=== PATIENT | female | born 2000 ===

== ENCOUNTER 2020-07-12 11:37 | Outpatient (REF) | payer OTHER, SELFPAY ==
[2020-07-12 13:30] LABS: MANUAL DIFF FLAG NO
[2020-07-12 13:35] LABS: Basophils Absolute Auto 0.1 X10*3/uL (0.0-0.2); Basophils Percent Auto 0.7 % (0-2); Eosinophils Absolute Auto 0.3 X10*3/uL (0.0-0.4); Eosinophils Percent Auto 4.8 % (0-4); Hematocrit 45.9 % (37-47); Hemoglobin 15.3 g/dl (12.0-16.0); Imm Gran Abs Auto 0.01 X10*3/uL (0.00-0.03); Imm Gran Pct Auto 0.1 % (0.0-0.4); Lymphocytes Percent Auto 28.9 % (20-40); Mean Corpuscular HGB Conc 33.3 g/dl (31.0-35.0); Mean Corpuscular Hemoglobin 29.7 pg (27.0-33.0); Mean Corpuscular Volume 89.1 fL (80-98); Mean Platelet Volume 10.9 fL (9.4-12.3); Monocytes Absolute Auto 0.6 X10*3/uL (0.1-1.2); Monocytes Percent Auto 8.1 % (2-11); Neutrophils Absolute Auto 3.9 X10*3/uL (2.0-8.3); Neutrophils Percent Auto 57.4 % (45-73); Platelet Count 278 X10*3/uL (160-400); Red Blood Count 5.15 X10*6/uL (4.20-5.50); Red Cell Distribution Width 12.2 % (11.0-16.0); White Blood Count 6.8 X10*3/uL (4.8-10.8)
[2020-07-12 13:46] LABS: Glucose Urine UA NEG (NEG); Leukocyte Esterase Urine NEG (NEG); Nitrite Urine NEG (NEG); PH 6.5 (5.0-8.0); Specific Gravity - Urine 1.025 (1.005-1.025); Urine Blood NEG (NEG); Urine Ketones NEG (NEG); Urine Protein NEG (NEG-TRACE)
[2020-07-12 13:57] LABS: Appearance Urine CLEAR; Color Urine YELLOW
[2020-07-12 14:27] LABS: Alanine Aminotransferase 8 U/L (0-31); Albumin Level 4.5 g/dL (3.5-5.0); Alkaline Phosphatase 65 U/L (39-117); Anion Gap 10 (12-20); Aspartate Amino Transferase 14 U/L (5-31); Bilirubin Total 0.8 mg/dL (0.0-1.0); Blood Urea Nitrogen 7 mg/dL (9-16); C Reactive Protein 0.02 mg/dL (< or = 0.50); Calcium 9.4 mg/dL (8.4-10.2); Carbon Dioxide 27 mmol/L (22-29); Chloride 105 mmol/L (96-108); Estimated Glomerular Filt Rate > 60; Glucose Random 82 mg/dL (60-115); Potassium 4.2 mmol/l (3.3-5.1); Sodium 138 mmol/L (135-145)
== END 2020-07-12 11:38 | disposition home or self-care (01) ==
LOC: HO.10HDL 11:37
PROVIDERS: PCP Internal Medicine; Visit Provider Internal Medicine
DX: L50.9 Urticaria, unspecified (principal); N20.0 Calculus of kidney; Z86.2 Personal history of diseases of the blood and blood-forming organs and certain disorders involving the immune mechanism
CPT/HCPCS: 36415; 80053; 81003; 85025; 86140

== ENCOUNTER → 2020-08-22 10:29 | Outpatient (BNVA) | payer OTHER, SELFPAY | PROVIDERS: PCP Internal Medicine; Visit Provider Obstetrics & Gynecology | DX: Z76.89 Persons encountering health services in other specified circumstances (principal) ==

== ENCOUNTER 2021-02-24 15:50 | Outpatient (REF) | payer OTHER, SELFPAY ==
--- NOTE | ~2021-02-24 | XR_ITS ---
EXAMINATION: XR KNEE, LEFT CLINICAL INFORMATION: Left knee pain COMPARISON: None TECHNIQUE: Four views of the left knee. FINDINGS: Bones and soft tissues are normal. No fracture or joint effusion. Alignment is anatomic. Joint spaces are well maintained. No abnormal soft tissue calcification. XR/XR knee LT 4V IMPRESSION: Unremarkable left knee.
== END 2021-02-24 15:51 | disposition home or self-care (01) ==
LOC: HO.XRAY 15:50
PROVIDERS: PCP Internal Medicine; Visit Provider Internal Medicine
DX: M25.562 Pain in left knee (principal)
CPT/HCPCS: 73564

== ENCOUNTER 2021-05-19 10:07 | Outpatient (REF) | payer MEDICAID, SELFPAY ==
[2021-05-20 03:54] LABS: CT PCR NOT DETECTED (Not Detect.); NG PCR NOT DETECTED (Not Detect.)
[2021-05-20 09:40] LABS: BV Int Neg Control Negative (Negative); BV Int Pos Control Positive (Positive)
== END 2021-05-19 10:08 | disposition home or self-care (01) ==
LOC: HO.LAB 10:07
PROVIDERS: PCP Internal Medicine; Visit Provider Obstetrics & Gynecology
DX: Z01.411 Encounter for gynecological examination (general) (routine) with abnormal findings (principal); Z11.3 Encounter for screening for infections with a predominantly sexual mode of transmission; B37.3 Candidiasis of vulva and vagina
CPT/HCPCS: 87480; 87491; 87510; 87591; 87660

== ENCOUNTER → 2021-05-21 15:06 | Outpatient (BNVA) | payer MEDICAID, SELFPAY | PROVIDERS: PCP Internal Medicine | DX: Z13.89 Encounter for screening for other disorder (principal); Z20.822 Contact with and (suspected) exposure to COVID-19 | CPT/HCPCS: 36415; 87635; C9803 ==

== ENCOUNTER → 2021-08-14 14:46 | Outpatient (BNVA) | payer OTHER, SELFPAY | PROVIDERS: Visit Provider Advanced Practice Midwife | DX: L72.3 Sebaceous cyst (principal) | CPT/HCPCS: 99212 ==

== ENCOUNTER 2021-12-22 08:23 | Outpatient (REF) | payer OTHER, SELFPAY ==
[2021-12-22 14:41] LABS: CT PCR NOT DETECTED (Not Detect.); NG PCR NOT DETECTED (Not Detect.)
[2021-12-23 14:09] LABS: BV Int Neg Control Negative (Negative); BV Int Pos Control Positive (Positive)
== END 2021-12-22 08:24 | disposition home or self-care (01) ==
LOC: HO.LAB 08:23
PROVIDERS: Visit Provider Advanced Practice Midwife
DX: R10.2 Pelvic and perineal pain (principal); N89.8 Other specified noninflammatory disorders of vagina; R68.82 Decreased libido; Z20.2 Contact with and (suspected) exposure to infections with a predominantly sexual mode of transmission
CPT/HCPCS: 87480; 87491; 87510; 87591; 87660; 99212

== ENCOUNTER 2022-02-23 11:21 | Outpatient (REF) | payer OTHER, SELFPAY ==
--- NOTE | ~2022-02-23 | XR_ITS ---
EXAMINATION: XR TIBIA AND FIBULA, RIGHT CLINICAL INFORMATION: Pain COMPARISON: None TECHNIQUE: AP and lateral views of the right tibia and fibula were obtained. FINDINGS: The bones and soft tissues are normal. No fracture. No osseous lesions. XR/XR tibia fibula RT 2V IMPRESSION: No acute osseous changes to explain patient's pain symptoms.
== END 2022-02-23 11:22 | disposition home or self-care (01) ==
LOC: HO.XRAY 11:21
PROVIDERS: PCP Internal Medicine; Visit Provider Internal Medicine
DX: M79.661 Pain in right lower leg (principal)
CPT/HCPCS: 73590

== ENCOUNTER 2022-05-21 13:30 | Outpatient (REF) | payer OTHER, SELFPAY ==
--- NOTE | 2022-05-22 10:42 | MHC.AU.ANO ---
Adult Audiological Evaluation Date of Visit: 05/21/22 Reason for Appointment: Patient reports that she has been experiencing hearing difficulty that has gradually increasing for many years. She reports that she failed the hearing exam in the twice. She finds herself asking for repetition frequently and watching people's lips when they talk. Ear History: Ear Deformity: None Reported Recent Ear Drainage: None Reported Recent Ear Pain: None Reported Family History of Hearing Loss?: No Recent Ear Infections: None Reported Ear Infections in Childhood: None Reported History of Ear Wax Buildup: None Reported Previous Ear Surgery: None Reported Bothersome Tinnitus/Ringing/Noises in Ears: None Reported Ear used on the phone: Right Ear Blocked/Full Sensation in Ear(s): None Reported History of occupational noise exposure?: No History: Yes: [employer] for 2 years Medical History: Medical History: Unremarkable Medical History Otoscopy: Right Ear: Unremarkable Left Ear: Unremarkable Tympanometry: Tympanometry performed due to: To assess integrity of the middle ear system Right Ear: Hypercompliant Middle Ear System (Type Ad) Left Ear: Normal Middle Ear System (Type A) Hearing Evaluation: Transducer(s) Used: Insert Earphones Method: Conventional Audiometry Stimuli Used: Pure Tones Right Ear: Description of Hearing: Mild conductive hearing loss from 250-1000 Hz, rising to normal from 3481-0870 Hz Left Ear: Description of Hearing: Mild conductive hearing loss from 250-3000 Hz, rising to normal from 4850-4082 Hz Speech Recognition Threshold (SRT): Method Used: Recorded Lists Stimuli Used: Spondee Words Right Ear: 20 dBHL Left Ear: 25 dBHL Word Discrimination: Method: Recorded Lists Word Lists Used: W-22 Right Ear: 100% at 60 dBHL Left Ear: 100% at 60 dBHL Most Comfortable Level (MCL): Right Ear: 60 dBHL Left Ear: 60 dBHL Interpretation of Results: Patient presents with mild low-mid frequency conductive hearing loss bilaterally. The left ear is worse than the right. Recommendations: Referral to Ear, Nose, and Throat is highly recommended to address asymmetrical conductive hearing loss. Diagnosis: Primary Diagnosis: H90.0 Conductive Hearing Loss, Bilateral Signature: Provider: Jenn Heaton, [facility]
== END 2022-05-21 13:31 | disposition home or self-care (01) ==
LOC: HO.SH 13:30
PROVIDERS: Visit Provider Internal Medicine
DX: Z01.118 Encounter for examination of ears and hearing with other abnormal findings (principal); H90.0 Conductive hearing loss, bilateral
CPT/HCPCS: 92557; 92567

== ENCOUNTER 2022-07-23 13:39 | Outpatient (REF) | payer OTHER, SELFPAY ==
[2022-07-23 14:27] LABS: Influenza A PCR NEGATIVE (Negative); Influenza B PCR NEGATIVE (Negative); Resp Syncy Virus RNA Qual PCR NEGATIVE (Negative); SARS COV2 PCR INHOUSE NEGATIVE (Negative)
== END 2022-07-23 13:40 | disposition home or self-care (01) ==
LOC: HO.LNP 13:39
PROVIDERS: Visit Provider Internal Medicine
DX: Z20.822 Contact with and (suspected) exposure to COVID-19 (principal); J02.9 Acute pharyngitis, unspecified
CPT/HCPCS: 0241U; 87070

== ENCOUNTER → 2022-07-31 09:49 | Outpatient (BNVA) | payer OTHER, SELFPAY | PROVIDERS: PCP Internal Medicine; Visit Provider Physician Assistant | DX: S50.02XA Contusion of left elbow, initial encounter (principal); W50.0XXA Accidental hit or strike by another person, initial encounter | CPT/HCPCS: 99203 ==

== ENCOUNTER → 2022-09-30 14:10 | Outpatient (BNVA) | payer OTHER, SELFPAY | PROVIDERS: PCP Internal Medicine; Visit Provider Advanced Practice Midwife | DX: Z01.419 Encounter for gynecological examination (general) (routine) without abnormal findings (principal) ==

== ENCOUNTER 2022-10-20 14:21 | Outpatient (REF) | payer OTHER, SELFPAY ==
--- NOTE | ~2022-10-20 | US_ITS ---
EXAMINATION: US DIAGNOSTIC ULTRASOUND BREAST, LEFT CLINICAL INFORMATION: 22-year-old with soft palpable fullness upper outer left breast noted at routine clinical exam. No prior breast imaging. No discharge. No known family history breast cancer. COMPARISON: None. TECHNIQUE: Ultrasound left breast is targeted to the outer quadrants using grayscale imaging and color Doppler without and with harmonics. Patient does not perceive a focal specific palpable concern at time of imaging. FINDINGS: There is no focal suspicious finding. There is no solid mass, architectural abnormality, duct ectasia, or edema in the soft tissue planes. No skin thickening. Results are discussed with the patient at time of visit. US/US breast LT limited IMPRESSION: Unremarkable left breast ultrasound. ASSESSMENT: BI-RADS 1: Negative RECOMMENDATION: Patient should be managed based on the clinical impression. If clinically indicated, further evaluation may be considered with surgical consult. Decision to proceed with biopsy should be based on clinical grounds and degree of clinical concern.
== END 2022-10-20 14:22 | disposition home or self-care (01) ==
LOC: HO.MAMMO 14:21
PROVIDERS: Visit Provider Internal Medicine
DX: N63.21 Unspecified lump in the left breast, upper outer quadrant (principal)
CPT/HCPCS: 76642

== ENCOUNTER 2023-04-30 10:24 | Emergency (ER) | payer OTHER, SELFPAY ==
--- NOTE | ~2023-04-30 | XR_ITS ---
EXAMINATION: XR ELBOW, RIGHT CLINICAL INFORMATION: Pain. Fall. COMPARISON: None available. TECHNIQUE: AP, lateral, and oblique views of the right elbow. FINDINGS: The bones and soft tissues are normal. No fracture or joint effusion. Alignment is anatomic. Joint spaces are maintained. XR/XR elbow RT min 3V IMPRESSION: Normal right elbow.
--- NOTE | ~2023-04-30 | XR_ITS ---
EXAMINATION: XR knee LT 4V, XR hip LT min 2V CLINICAL INFORMATION: Fall. Pain. COMPARISON: 02/24/2021 TECHNIQUE: Frontal view of the pelvis with 2 views of the left hip. 4 views of the left knee. FINDINGS: Pelvis/left hip: No fracture or dislocation. The hips are well aligned. Joint spaces are maintained. The pelvic rim is intact. The sacroiliac joints and pubic symphysis are well aligned. IUD noted in the pelvis. Left knee: No fracture or subluxation. Compartmental joint spaces are maintained. No joint effusion. The soft tissues are unremarkable. XR/XR knee LT 4V IMPRESSION: No fracture or malalignment involving the pelvis, left hip, or left knee.
--- NOTE | ~2023-04-30 | XR_ITS ---
EXAMINATION: XR knee LT 4V, XR hip LT min 2V CLINICAL INFORMATION: Fall. Pain. COMPARISON: 02/24/2021 TECHNIQUE: Frontal view of the pelvis with 2 views of the left hip. 4 views of the left knee. FINDINGS: Pelvis/left hip: No fracture or dislocation. The hips are well aligned. Joint spaces are maintained. The pelvic rim is intact. The sacroiliac joints and pubic symphysis are well aligned. IUD noted in the pelvis. Left knee: No fracture or subluxation. Compartmental joint spaces are maintained. No joint effusion. The soft tissues are unremarkable. XR/XR hip LT min 2V IMPRESSION: No fracture or malalignment involving the pelvis, left hip, or left knee.
--- NOTE | 2023-04-30 12:09 | ED_ITS ---
HPI - General Adult General Chief complaint: Fall Stated complaint: fall Time Seen by Provider: 04/30/23 13:29 Source: patient Mode of arrival: ambulatory Limitations: no limitations History of Present Illness HPI narrative: Patient is a 22-year-old female presenting to the emergency department with left hip and knee pain as well as right elbow pain after slipping down 2 steps yesterday. Patient denies hitting head or losing consciousness. Denies neck or back pain. She is not on blood thinning medications. She denies any numbness or tingling. She did not take any OTC medications for her pain, states I don't take any of that. complaint: left hip and knee pain, right elbow pain Onset (ago): hour(s) Location: upper extremity and lower extremity Radiation: non-radiation Severity: moderate Quality: aching Pain Consistency: constant Relieving factors: rest Exacerbating factors: movement Associated symptoms: denies other symptoms Treatments prior to arrival: none Related Data Home Medications Medication Instructions Recorded Confirmed levonorgestrel 14 mcg/24 hrs (3 intrauterine 08/22/20 09/30/22 yrs) 13.5 mg intrauterine device (Ofelia) Allergies Allergy/AdvReac Type Severity Reaction Status Date / Time ferrous sulfate Allergy Intermediate Itching Verified 04/30/23 12:09 [From [place]-Iron] Review of Systems Review of Systems: As per HPI. Yes all other systems are reviewed and are negative Constitutional: Constitutional: Reports as per HPI [facility] Past Medical History Surgical History (Updated 09/30/22 @ 16:01 by Norah Pagan CNM) H/O exploratory laparotomy Social History Social History Alcohol intake: current Alcohol intake frequency: holidays/special occasions only Patient Tobacco Use Status: Former Tobacco user Advance Directives: No Advance Directives Information Provided: No Sexual orientation: Straight/Heterosexual Gender identity: Female Physical Exam ED Vital Signs: Vital Signs - 24 hr 04/30/23 12:10 Temperature 97.9 F Pulse Rate 75 Respiratory Rate 18 Blood Pressure 100/83 Pulse Oximetry 100 Oxygen Delivery Method Room Air BMI result Body Mass Index 26.5 Vital signs have been reviewed and appear to be correct. Blood pressure normal. Heart rate normal. Respiratory rate normal. Temperature normal. Oxygen saturation normal. Const General: cooperative, healthy appearing and no acute distress Orientation/consciousness: oriented to person, oriented to place, oriented to time and patient oriented x3 Limitations: no limitations HENMT Head: Yes normocephalic and Yes atraumatic Ears: external ears normal General nose exam: Normal external nose present Face and sinus: Yes face symmetric Mouth: oropharynx normal and moist mucous membranes Throat: Yes uvula midline Eyes Pupils: Equal, round and reactive pupils present Neck Neck: Yes normal visual inspection and Yes supple Resp Effort & Inspection: normal respiratory effort and able to speak in complete sentences Auscultation: clear to auscultation bilaterally Cardio Rate: regular rate Rhythm: regular rhythm Heart sounds: S1 normal heart sound present and S2 normal heart sound present GI Palpation (GI): Soft to palpation and nontender Auscultation: normoactive bowel sounds General: Yes no CVA tenderness Back/Spine/Pelvis Back: no CVA tenderness Skin General skin exam: elasticity normal and turgor normal Neuro General: oriented to person, oriented to place, oriented to time, patient oriented x3, moves all extremities, no focal motor deficits and CN's II-XI intact bilaterally Cranial nerves: Yes Equal, round and reactive pupils present Cognition (Neuro): normal cognition Extrem General: Yes full ROM, Yes no pedal edema and Yes no calf tenderness Right upper extremity: elbow/forearm Details: normal to inspection, normal ROM and distal pulses intact; no tenderness, no swelling, no unusual warmth, no ecchymosis, no crepitus and no deformity Left lower extremity: normal to inspection, full ROM, normal capillary refill, hip/thigh Details: normal to inspection, tenderness Location: of the hip Location: laterally and normal ROM; no swelling, no ecchymosis and no crepitus and knee Details: normal to inspection, tenderness Location: of the patella, normal ROM and knee ligament exam normal; no swelling and no deformity Psych Mental Status: mental status grossly normal Affect: normal affect Thought process: Normal thought process present Course Course Course Narrative: RME performed by Sarah Page PA-C. Patient is a 22 year old assigned female at presenting to the emergency department with right elbow and left knee pain after falling down 2 steps. Imaging ordered. Patient placed back in [facility] waiting room pending room availability and results. Medical Decision Making Medical Decision Making MDM Narrative: Patient is a 22-year-old female presenting to the emergency department with left hip and knee pain as well as right elbow pain after slipping down 2 steps yesterday. On exam patient is awake, A+Ox3, VS WNL, afebrile, normal neurological exam without focal deficits, no swelling, ecchymosis or tenderness of right elbow, full ROM, left lateral hip tenderness, no swelling, deformity or ecchymosis, full range of motion, left anterior knee tenderness, full range of motion, normal ligament exam, no ecchymosis. Patient ambulating independently with steady gait. Given reported symptoms and physical exam findings, initial differential includes strain, sprain, contusion, fracture. X-ray notable for no acute fracture or dislocation of right elbow, left knee, left hip. My interp retation is in agreement with the radiologist's interpretation. Will discharge patient home, advised Tylenol/ibuprofen if pain worsens, can also ice several times daily, Epson salt baths. Instructed patient to follow-up with PCP. Will refer to Ortho for any ongoing symptoms. Return precautions discussed at bedside. Patient verbalized understanding of and agreement with plan. Differential Diagnosis Differential Diagnoses: The differential diagnosis associated with the presentation includes As per MDM. Independent Interpretation I performed an independent interpretation of an: Plain X-Ray Interpretation: Normal right elbow, left hip, left knee Radiology Impression Discussion of test interpretation with radiology: I have reviewed the radiologist's reading. Radiologist Impression: XR/XR elbow RT min 3V IMPRESSION: Normal right elbow. XR/XR hip LT min 2V IMPRESSION: No fracture or malalignment involving the pelvis, left hip, or left knee. ? External Record Review External record reviewed: Inpatient record, Office record and Outpatient record Discharge Plan Discharge Clinical Impression: Contusion of elbow, right, Muscle strain of left hip, Strain of left knee Patient Disposition: Home, Self-Care Instructions: Contusion in Adults (ED), Muscle Strain (DC) Additional Instructions: You have been evaluated in the emergency department today for elbow, hip, and knee pain. Your evaluation did not find evidence of medical conditions requiring emergent intervention at this time. Please rest, ice, and elevate your injured areas, and resume normal activities as tolerated. We recommend you take 600mg ibuprofen every 6 hours or 650mg Tylenol every 6 hours as needed for pain. If needed you can alternate these medications as they take 1 medication every 3 hours. For instance at noon take ibuprofen, then at 3:00 p.m. take Tylenol, then at 6:00 p.m. take ibuprofen. Please schedule an appointment for follow-up with your primary care provider this week. Return to the emergency department if you experience worsening pain, numbness, tingling, change of color in your arms or legs, or any other concerning symptoms. IF your symptoms persist beyond 1-2 weeks, please follow up with orthopedics. Prescriptions: No Action Ofelia 14 mcg/24 hrs (3 yrs) 13.5 mg intrauterine device intrauterine Referrals: [facility] [Provider Group] Stand Alone Forms: Work/School Release
[2023-04-30 12:10] VITALS: BP 100/83; PULSE 75; RESP 18; TEMP 36.6; O2SAT 100; BMI 26.5
--- NOTE | 2023-04-30 13:03 | PC.NURSE ---
patient a&ox3, c/o lle pain, pt awaiting xray, call degroot within reach, will continue to monitor
== END 2023-04-30 14:54 | disposition home or self-care (01) ==
PROVIDERS: Emergency Provider Emergency Medicine
DX: S50.01XA Contusion of right elbow, initial encounter (principal); S76.012A Strain of muscle, fascia and tendon of left hip, initial encounter; S86.112A Strain of other muscle(s) and tendon(s) of posterior muscle group at lower leg level, left leg, initial encounter; W10.8XXA Fall (on) (from) other stairs and steps, initial encounter; Y93.9 Activity, unspecified; Y92.9 Unspecified place or not applicable; Y99.9 Unspecified external cause status
CPT/HCPCS: 73080; 73502; 73564; 99282; 99283

== ENCOUNTER 2024-01-11 10:58 | Outpatient (AMB) | payer OTHER, SELFPAY ==
--- NOTE | 2024-01-11 11:05 | A.OFFVIS_ITS ---
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 The patient is overdue for Ofelia IUD removal and would like to have it taken out. Last Pap smear was many years ago [facility] Medical History (Updated 01/11/24 @ 11:37 by Victor M Salcido MD) Pelvic pain Surgical History H/O exploratory laparotomy Social History Alcohol intake: current Alcohol intake frequency: holidays/special occasions only Patient Tobacco Use Status: Former Tobacco user Sexual orientation: Straight/Heterosexual Gender identity: Female Female Reproductive History Menstrual Age of Menarche: 8 control method: progestin IUCD Total pregnancies: 0 Date of last pap smear: 03/15/20 (negative) Review of Systems Const All systems reviewed & are unremarkable except as noted in HPI and below Card Reports as per HPI Resp Reports as per HPI GI Reports as per HPI and Reports no additional complaints Reports as per HPI Physical Exam Vital Signs: Last Vital Signs BP 94/54 L 01/11/24 11:18 BMI result Body Mass Index 29.8 Const General: cooperative, healthy appearing and comfortable Chest Chest palpation & inspection: normal inspection of the chest and normal palpation of entire chest wall Breast/axilla inspection: normal inspection of the breasts and normal inspection of the axillae Breast/axilla palpation: normal palpation of the breasts, normal palpation of the axillae and no axillary lymphadenopathy Resp Effort & Inspection: normal respiratory effort Auscultation: clear to auscultation bilaterally Percussion: percussion normal Cardio Palpation: normal PMI Rate: regular rate Rhythm: regular rhythm Heart sounds: no murmurs and no rubs Peripheral pulses: Peripheral pulses 2+ throughout GI Inspection: Yes normal to inspection Palpation (GI): Soft to palpation, nontender, no guarding, not rigid and No hepatosplenomegaly present Percussion: Yes normal to percussion Auscultation: normal bowel sounds Rectal Exam - Female: deferred General: Yes no CVA tenderness External Female Exam: normal external appearance and normal appearance of the urethra Speculum Exam - Vagina: normal appearance of the vagina, normal palpation, no lesions and no masses Speculum Exam - Cervix: normal appearance of the cervix, normal palpation, no lesions, no masses, nontender and Other cervical findings present (IUD thread in place) Bimanual exam- vagina & uterus: normal bimanual exam, normal palpation, uterine size normal, normal palpation, uterine shape normal, No Cervical tenderness present and non-tender Bimanual Exam- Adnexa, other: normal adnexae Back/Spine/Pelvis Back: no CVA tenderness Office Procedures IUD Insert/Removal Details Details: Counseling/Consent: After discussing with the patient the risks of the procedure including bleeding, infection, scar tissue formation, , possible injury to blood vessels or nerves, chronic arm pain, blood transfusion, and irregular unpredictable bleeding Alternative options were discussed with the patient including but not limited: Do nothing. The patient signed the consent and agreed with the plan; all questions answered. Urine test was done in the office and was negative Preop dx: Requesting IUD removal Op: IUD removal Post op dx: same EBL= 10 cc Procedure: The patient was put in the dorsal lithotomy position a speculum was inserted in the vagina the IUD thread identified. Using a Jeana clamp the thread was grasped and the IUD pulled out with no complications. The patient tolerated the procedure well and was advised to use a different method for contraception. Discharge instructions: Instructions were given to the pt to call if temp>100.4, abdominal pain heavy vaginal bleeding, n/v occur. The patient verbalized understanding and all questions answered. This note was generated with a voice recognition program. Some errors may have been overlooked during the review of this note. Sometimes these errors may affect the content or meaning of a given sentence. [id number]-JDT Removal Procedure code (CPT) selection complete Results AMB Test Urine AMB Test Urine Negative Last Edit by MICHELE Walsh on 01/11/24 11:21 AMB Urinalysis, Automated UA Leukoctes 0 Joel/uL Last Edit by MICHELE Walsh on 01/11/24 11:21 UA Nitrite Negative Last Edit by MICHELE Walsh on 01/11/24 11:21 UA Urobilinogen 0 mg/dL Last Edit by Yolande Landrum A on 01/11/24 11:21 UA Protein 0 mg/dL Last Edit by Yolande Landrum Elissa on 01/11/24 11:21 UA pH 7 Last Edit by Yolande Landrum A on 01/11/24 11:21 UA Blood 0 Manjit/uL Last Edit by Yolande Landrum Elissa on 01/11/24 11:21 UA Specific [place] 1.015 Last Edit by MICHELE Walsh on 01/11/24 11: 21 UA Ketone Negative Last Edit by Yolande Landrum Elissa on 01/11/24 11:21 UA Bilirubin 0 mg/dL Last Edit by Yolande Landrum Elissa on 01/11/24 11:21 UA Glucose 0 mg/dL Last Edit by Yolande Landrum Elissa on 01/11/24 11:21 Results Reviewed Results Reviewed: Laboratory Last Values Urine pH (Auto) 7 01/11/24 11:20 Specific [place] (Auto) 1.015 01/11/24 11:20 Urine Protein (Auto) 0 mg/dL 01/11/24 11:20 Glucose (UA)(Auto) 0 mg/dL 01/11/24 11:20 Urine Ketones (Auto) Negative 01/11/24 11:20 Urine Blood (Auto) 0 Manjit/uL 01/11/24 11:20 Urine Nitrite (Auto) Negative 01/11/24 11:20 Urine Bilirubin (Auto) 0 mg/dL 01/11/24 11:20 Urine Urobilinogen (Auto) 0 mg/dL 01/11/24 11:20 Leukocyte Esterase (Auto) 0 Joel/uL 01/11/24 11:20 Tst Clinic Negative 01/11/24 11:20 Assessment & Plan Assessment & Plan (1) Family planning: Code(s): Z30.09 - Encounter for other general counseling and advice on contraception Plan: Discussed with the patient the different options of control including control pills/Nuvaring, Depo Medroxy Progesterone Acetate, IUD ( levonorgestrel, Copper), sterilization. All the pros, cons, risks and benefits of each were discussed with the patient. The patient decided to go ahead with [facility] so a more detailed discussion re: control pills including mechanism of action, benefits (regular menses, less dysmenorrhea, less risk of ovarian cancer, ...), risks ( DVT, PE, Strokes, CT, increased breast ca, others). Instructions were given to use a back- up method for contraception x 1st 2 weeks, and to schedule a 3 months appointment for blood pressure check (2) Encounter for IUD removal: Code(s): Z30.432 - Encounter for removal of intrauterine contraceptive device Plan: IUD removed per patient request, see procedure note (3) Pelvic pain: Code(s): R10.2 - Pelvic and perineal pain Plan: Urine dip and test done in the office were both negative. Pap smear taken, GC and chlamydia taken and pelvic ultrasound ordered stat. Discussed with the patient the differential diagnosis of pelvic pain including but not limited to adnexal, uterine masses, pelvic infections (PID), GI the (Irritable bowel syndrome, diverticulitis, others), musculoskeletal, myofascial pain abdominal wall , adhesions, endometriosis, psychological and others causes. Will check results and treat accordingly. Instructed the patient schedule a 2 week for ultrasound follow-up appointment. All questions answered, the patient verbalized understanding Orders: Orders CT NG by PCR Today R10.2 - Pelvic and perineal pain Pap Smear Today Z12.4 - Encounter for screening for malignant neoplasm of cervix AMB HCG Urine Test Today Z32.02 - Encounter for test, result negative AMB Urinalysis Automated Today R10.2 - Pelvic and perineal pain Medications: New desogestrel-ethinyl estradiol 0.15-0.03 mg (Apri) 1 tab PO DAILY 28 days 28 tabs 2RF Coding Level of Care Code Est Pt Level 3 (12611) Diagnoses Family planning Z30.09 Encounter for IUD removal Z30.432 Pelvic pain R10.2 CPT Codes Details - CPT: 15429-LVR Removal ([id number])
[2024-01-11 11:18] VITALS: BP 94/54; BMI 29.8
== END 2024-01-11 14:19 | disposition home or self-care (01) ==
PROVIDERS: Visit Provider Obstetrics & Gynecology
DX: R10.2 Pelvic and perineal pain (principal); Z30.09 Encounter for other general counseling and advice on contraception; Z30.432 Encounter for removal of intrauterine contraceptive device; Z32.02 Encounter for pregnancy test, result negative
CPT/HCPCS: 99213

== ENCOUNTER 2024-01-11 10:58 | Outpatient (REF) | payer OTHER, SELFPAY ==
[2024-01-12 02:59] LABS: CT PCR NOT DETECTED (Not Detect.); NG PCR NOT DETECTED (Not Detect.)
== END 2024-01-11 10:59 | disposition home or self-care (01) ==
LOC: HO.LNP 10:58
PROVIDERS: Visit Provider Obstetrics & Gynecology
DX: R10.2 Pelvic and perineal pain (principal); Z30.432 Encounter for removal of intrauterine contraceptive device
CPT/HCPCS: 0353U; 58301; 81003; 81025; 88142; 99212

== ENCOUNTER 2024-01-11 11:59 | Outpatient (REF) | payer OTHER, SELFPAY ==
--- NOTE | ~2024-01-11 | US_ITS ---
EXAMINATION: US PELVIS CLINICAL INFORMATION: Pelvic and perineal pain. COMPARISON: None available. TECHNIQUE: Transabdominal imaging of pelvis is performed. Patient refused transvaginal ultrasound. FINDINGS: Uterus: The uterus is anteverted, anteflexed and measures 10.7 x 3.6 x 4.3 cm. The double wall endometrial thickness is 3.0 mm. The uterus is smooth in contour and has normal myometrial echogenicity. No visible fibroid. Adnexa: Both ovaries are visualized. There is normal color flow to the adnexa. There is no ovarian torsion. There is no pelvic ascites or fluid collection. Right ovary measures 2.8 x 1.4 x 2.1 cm and volume 4.3 mL. It appears unremarkable. Left ovary measures 5.6 x 3.1 x 4.5 cm and volume 78.12 mL. There is a complex anechoic cyst measuring 2.9 x 2.2 x 3.1 cm. There is no free fluid in the cul-de-sac. US/US pelvic complete IMPRESSION: Complex left ovarian cyst measuring 2.9 x 2.2 x 2.1 cm. Uterus and the right ovary is unremarkable.
== END 2024-01-11 12:00 | disposition home or self-care (01) ==
LOC: HO.US 11:59
PROVIDERS: Visit Provider Obstetrics & Gynecology
DX: R10.2 Pelvic and perineal pain (principal)
CPT/HCPCS: 76856

== ENCOUNTER 2024-01-24 09:53 | Emergency (ER) | payer OTHER, SELFPAY ==
[2024-01-24 10:01] VITALS: BP 115/73; PULSE 76; RESP 18; TEMP 36.8; O2SAT 99; BMI 30.2
[2024-01-24 10:15] LABS: MANUAL DIFF FLAG NO
[2024-01-24 10:17] LABS: Basophils Absolute Auto 0.1 X10*3/uL (0.0-0.2); Basophils Percent Auto 0.8 % (0-2); Eosinophils Absolute Auto 0.2 X10*3/uL (0.0-0.4); Eosinophils Percent Auto 2.9 % (0-4); Hematocrit 44.1 % (37.0-47.0); Imm Gran Abs Auto 0.01 X10*3/uL (0.00-0.03); Imm Gran Pct Auto 0.2 % (0.0-0.4); Lymphocytes Absolute Auto 1.8 X10*3/uL (1.2-4.9); Lymphocytes Percent Auto 27.7 % (20-40); Mean Corpuscular Hemoglobin 29.9 pg (27.0-33.0); Mean Platelet Volume 9.7 fL (9.4-12.3); Monocytes Absolute Auto 0.4 X10*3/uL (0.1-1.2); Monocytes Percent Auto 6.5 % (2-11); Neutrophils Absolute Auto 4.1 x10*3/uL (2.0-8.3); Neutrophils Percent Auto 61.9 % (45-73); Platelet Count 324 X10*3/uL (160-400); Red Blood Count 5.01 X10*6/uL (4.20-5.50); Red Cell Distribution Width 11.9 % (11.0-16.0); White Blood Count 6.7 X10*3/uL (4.8-10.8)
[2024-01-24 10:38] LABS: Alanine Aminotransferase 10 U/L (0-31); Albumin Level 4.2 g/dL (3.5-5.0); Alkaline Phosphatase 74 U/L (39-117); Anion Gap 14 (12-20); Aspartate Amino Transferase 15 U/L (5-31); Bilirubin Total 0.3 mg/dL (0.0-1.0); Blood Urea Nitrogen 7 mg/dL (9-16); Calcium 9.5 mg/dL (8.4-10.2); Carbon Dioxide 24 mmol/L (22-29); Chloride 108 mmol/L (96-108); Creatinine Clr Calc Pharmacy 105.7; Estimated Glomerular Filt Rate > 60; Glucose Random 94 mg/dL (60-115); Potassium 3.7 mmol/L (3.3-5.1); Sodium 142 mmol/L (135-145); Total Protein 7.7 g/dL (6.5-8.0)
--- NOTE | 2024-01-24 12:18 | ED_ITS ---
HPI - General Adult General Chief complaint: General Medical Stated complaint: Lower back pain Time Seen by Provider: 01/24/24 12:09 Source: patient and family Mode of arrival: ambulatory Limitations: no limitations History of Present Illness HPI narrative: This is a 23-year-old female came in for evaluation of bilateral lower back pain that is started few months ago and progressively getting worse over the past week, pain is bilateral flank area left more than right pain is aggravated by certain movements, pain is more in the morning then alleviate as the day wears on, no dysuria, no frequency urination, no hematuria, fever, chills, no trauma to the back, no strenuous activity reported by the patient lately, no known history of kidney stone, declined chance of being today.Patient has not tried any qizz-ecs-piyhnza medication for pain, no change in daily lifestyle, 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 Related Data Previous Rx's ?Medication ?Instructions ?Recorded desogestrel 0.15 mg-ethinyl 1 tab PO DAILY 28 days #28 tabs 01/11/24 estradiol 0.03 mg tablet (Apri) Allergies Allergy/AdvReac Type Severity Reaction Status Date / Time ferrous sulfate Allergy Intermediate Itching Verified 01/24/24 10:04 [From [place]] Review of Systems 2 Review of Systems: All other systems are reviewed and are negative Constitutional: Reports as per HPI and Reports no additional constitutional complaints Eyes: Reports as per HPI and Reports no additional eye complaints Reports system reviewed and no additional complaints, except as documented Cardiovascular: Reports as per HPI and Reports no additional cardiovascular complaints Respiratory: Reports as per HPI and Reports no additional respiratory complaints Gastrointestinal: Reports as per HPI and Reports no additional gastrointestinal complaints Genitourinary: Reports no additional female genitourinary complaints Musculoskeletal: Reports no additional musculoskeletal complaints Skin/Breast: Reports system reviewed and no additional complaints, except as docu Psychiatric: Reports no additional psychiatric complaints Endocrine: Reports no additional endocrine complaints Hematologic/Lymphatic: Reports no additional hematologic/lymphatic complaints Allergic/Immunologic: Reports no additional allergic/immunologic complaints Reports system reviewed and no additional complaints, except as documented and Reports Abnormal speech present [facility] Past Medical History Medical History Pelvic pain Surgical History H/O exploratory laparotomy Social History Social History Alcohol intake: current Alcohol intake frequency: holidays/special occasions only Patient Tobacco Use Status: Former Tobacco user Advance Directives: No Advance Directives Information Provided: No Sexual orientation: Straight/Heterosexual Gender identity: Female Physical Exam ED Vital Signs: Vital Signs - 24 hr 01/24/24 10:01 Temperature 98.2 F Pulse Rate 76 Respiratory Rate 18 Blood Pressure 115/73 Pulse Oximetry 99 Oxygen Delivery Method Room Air BMI result Body Mass Index 30.2 Vital signs have been reviewed and appear to be correct. Blood pressure elevated. Heart rate normal. Respiratory rate normal. Temperature normal. Oxygen saturation normal. Appearance: Alert. Oriented X3. No acute distress. Head: Normal external exam. Normocephalic. Atraumatic. No Barrios signs noted. No raccoon eyes noted Eyes: PERRLA. EOMI. Conjunctiva and sclera normal. Eyelids normal. ENT: TM's Normal. Pharynx normal. Uvula midline. Moist mucous membranes. No trismus noted. No drooling noted. No muffled voice noted. Neck: Normal inspection. Neck supple. FROM. No adenopathy. Thyroid Normal. No meningeal signs. No neck mass noted. CVS: Normal heart rate and rhythm. Heart sound normal. No murmurs noted. Pulses normal throughout. Respiratory: No respiratory distress. Painless inspiration. Breath sounds normal. No wheezes/rales/rhonchi noted. Chest nontender. No accessory muscle usage noted or decreased air movement noted. Abdomen: Soft and nontender. Bowel sounds normal in all 4 quadrants. No distention noted. No organomegaly noted. No visible injury noted. Back: No CVA tenderness. Full range of motion noted. Skin: Skin warm and dry. Normal skin color. Normal skin turgor. No rashes/lesions/lacerations noted. Extremities: No lower extremity edema. Extremities exhibit normal range of motion. Extremities nontender. Neuro: Oriented X 3. Cranial nerve exam: II-XII are grossly intact No motor deficit. No sensory deficit. Reflexes normal. Course Reevaluation(s) Reevaluation #1: 23-year-old female came in for evaluation of bilateral flank pain for months that is getting worse over the past week, no symptoms to indicate UTI or kidney stone with clear urine, labs are unremarkable, at this point no acute emergency intervention is needed patient was instructed to follow-up with PCP. Patient is declining taking any tifp-wqi-iclwuni NSAIDs or Tylenol. Time: 13:31 Medications Administered Discontinued Medications Generic Name Dose Route Start Last Admin Trade Name Freq PRN Reason Stop Dose Admin Ibuprofen 400 mg 01/24/24 12:19 01/24/24 13:02 Ibuprofen 400 Mg Tablet PO 01/24/24 12:20 Not Given ONCE ONE Medical Decision Making Differential Diagnosis Differential Diagnoses: The differential diagnosis associated with the presentation includes ( Myofascial muscular flank pain, pyelonephritis, UTI, kidney stone, , electrolyte derangement, severe anemia.) Admission/Observation Consideration of admission/observation: Escalation of care including admission/observation considered Lab Data MDM Lab Attestation statement: I reviewed the patient's lab results. 01/24/24 10:12 01/24/24 10:12 Labs: Lab Results 01/24/24 01/24/24 Range/Units 10:12 13:08 WBC 6.7 (4.8-10.8) X10*3/uL RBC 5.01 (4.20-5.50) X10*6/uL Hgb 15.0 (12.0-16.0) g/dl Hct 44.1 (37.0-47.0) % MCV 88.0 (80.0-98.0) fL MCH 29.9 (27.0-33.0) pg MCHC 34.0 (31.0-35.0) g/dl RDW 11.9 (11.0-16.0) % Plt Count 324 (160-400) X10*3/uL MPV 9.7 (9.4-12.3) fL Immature Gran % (Auto) 0.2 (0.0-0.4) % Neut % (Auto) 61.9 (45-73) % Lymph % (Auto) 27.7 (20-40) % Cass % (Auto) 6.5 (2-11) % Eos % (Auto) 2.9 (0-4) % Baso % (Auto) 0.8 (0-2) % Lymph # (Auto) 1.8 (1.2-4.9) X10*3/uL Cass # (Auto) 0.4 (0.1-1.2) X10*3/uL Eos # (Auto) 0.2 (0.0-0.4) X10*3/uL Baso # (Auto) 0.1 (0.0-0.2) X10*3/uL Abs Immat Gran (auto) 0.01 (0.00-0.03) X10*3/uL Absolute Neuts (auto) 4.1 (2.0-8.3) x10*3/uL Absolute Nucleated RBC 0.000 (0.0-0.012) X10*3/uL Nucleated RBC % (auto) 0.0 (0.0-0.2) /100WBC Sodium 142 (135-145) mmol/L Potassium 3.7 (3.3-5.1) mmol/L Chloride 108 (96-108) mmol/L Carbon Dioxide 24 (22-29) mmol/L Anion Gap 14 (12-20) BUN 7 L (9-16) mg/dL Creatinine 0.77 (0.5-1.4) mg/dL Estim Creat Clear Calc 105.7 Estimated GFR > 60 Random Glucose 94 (60-115) mg/dL Calcium 9.5 (8.4-10.2) mg/dL Total Bilirubin 0.3 (0.0-1.0) mg/dL AST 15 (5-31) U/L ALT 10 (0-31) U/L Alkaline Phosphatase 74 (39-117) U/L Total Protein 7.7 (6.5-8.0) g/dL Albumin 4.2 (3.5-5.0) g/dL Urine Color Yellow Urine Appearance Clear Urine pH 7.5 (5.0-9.0) Ur Specific [place] <= 1.005 (1.005-1.025) Urine Protein Negative (Neg-Trace) mg/dL Urine Glucose (UA) Negative (Negative) mg/dL Urine Ketones Negative (Negative) mg/dL Urine Blood Negative (Negative) Urine Nitrite Negative (Negative) Ur Leukocyte Esterase Negative (Negative) Urine Test NEGATIVE (NEGATIVE) Discharge Plan Discharge Clinical Impression: Flank pain Patient Disposition: Home, Self-Care Instructions: Musculoskeletal Pain (ED) Prescriptions: No Action desogestrel-ethinyl estradiol [Apri] 0.15-0.03 mg tablet 1 tab PO DAILY 28 Days Qty: 28 2RF Referrals: Aga Burnham MD [Primary Care Provider] - Stand Alone Forms: Work/School Release Print Language: Mauritian
--- NOTE | 2024-01-24 13:02 | PC.NURSE ---
PT REFUSED IBUPROFEN, I FEEL THE SAME BUT I DON'T LIKE PHARMACEUTICALS DR. MUNOZ MADE AWARE.
[2024-01-24 13:13] LABS: Appearance Urine Clear; Color Urine Yellow; Glucose Urine UA Negative (Negative); Leukocyte Esterase Urine Negative (Negative); Nitrite Urine Negative (Negative); PH 7.5 (5.0-9.0); Specific Gravity - Urine <= 1.005 (1.005-1.025); Urine Blood Negative (Negative); Urine Ketones Negative (Negative); Urine Protein Negative (Neg-Trace)
[2024-01-24 13:16] LABS: UPreg QC Valid YES; Urine Pregnancy NEGATIVE (NEGATIVE)
[2024-01-24 14:15] VITALS: BP 115/73; PULSE 76; RESP 18; TEMP 36.8; O2SAT 99
== END 2024-01-24 14:22 | disposition home or self-care (01) ==
PROVIDERS: Emergency Provider Emergency Medicine; PCP Student in an Organized Health Care Education/Training Program
DX: R10.9 Unspecified abdominal pain (principal)
CPT/HCPCS: 36415; 80053; 81003; 81025; 85025; 99282; 99283

== ENCOUNTER 2024-01-26 16:04 | Outpatient (AMB) | payer OTHER, SELFPAY ==
--- NOTE | 2024-01-26 16:08 | MHC.OFFVIS ---
Intake Vital Signs 01/26/24 16:10 Height 5 ft 2 in Weight 163 lb 2.273 oz BMI 29.8 BP 108/60 Intake Visit Reasons: U/S results Photo Intern Required: No Information Interpreted: non-clinical & clinical Accompanied by: Self / Same As Patient Allergies ferrous sulfate [From [place]-[facility]] Allergy (Intermediate, Verified 01/26/24 16:10) Itching Is last menstrual period known: Yes Last menstrual period: 01/14/24 HPI HPI Comments History of Present Illness Details Presenting for ultrasound follow-up for pelvic pain. Last visit urine dip/ test post were negative. Pelvic ultrasound done recently showed the following: Uterus: The uterus is anteverted, anteflexed and measures 10.7 x 3.6 x 4.3 cm. The double wall endometrial thickness is 3.0 mm. The uterus is smooth in contour and has normal myometrial echogenicity. No visible fibroid. Adnexa: Both ovaries are visualized. There is normal color flow to the adnexa. There is no ovarian torsion. There is no pelvic ascites or fluid collection. Right ovary measures 2.8 x 1.4 x 2.1 cm and volume 4.3 mL. It appears unremarkable. Left ovary measures 5.6 x 3.1 x 4.5 cm and volume 78.12 mL. There is a complex anechoic cyst measuring 2.9 x 2.2 x 3.1 cm. There is no free fluid in the cul-de-sac. [facility] Medical History Pelvic pain Surgical History H/O exploratory laparotomy Social History Alcohol intake: current Alcohol intake frequency: holidays/special occasions only Patient Tobacco Use Status: Former Tobacco user Sexual orientation: Straight/Heterosexual Gender identity: Female Female Reproductive History Menstrual Age of Menarche: 8 Date of last menstrual period: 01/14/24 Review of Systems Const All systems reviewed & are unremarkable except as noted in HPI and below Reports as per HPI and Reports no additional complaints GI Reports no additional complaints Reports no additional complaints Physical Exam Vital Signs: Last Vital Signs BP 108/60 01/26/24 16:10 BMI result Body Mass Index 29.8 Assessment & Plan Assessment & Plan (1) Complex ovarian cyst: Code(s): N83.299 - Other ovarian cyst, unspecified side Plan: Discussed with the patient the complex ovarian cyst by ultrasound. Discussed with the patient the Ultrasound findings, the main limitation of transvaginal ultrasonography alone as a diagnostic tool to distinguish benign from malignant masses relates to its lack of specificity and low positive predictive value for cancer. The differential diagnosis discussed with the patient includes the following but not limited to: benign and malignant gynecological and non-gynecological causes. Discussed with the patient options of treatment including laparoscopy ovarian cystectomy/oophorectomy vs. expectant management with repeat US in repeating pelvic US in 12 weeks from previous US. If the ovarian complex cyst is persistent larger and / or more complex looking will refer to gynecologic Oncology. All pros, cons, risks and benefits of each approach were discussed with the patient including but not limited to a delay in the diagnosis and treatment of ovarian cancer affecting the prognosis; The patient decided to go ahead with expectant management. Instructions given the patient to schedule a 3 months follow-up ultrasound appointment. All questions were answered & the patient verbalized understanding and agreed with the plan. Orders: Orders US pelvic and transvaginal 3 Months N83.299 - Other ovarian cyst, unspecified side Coding Level of Care Code Est Pt Level 3 (57785) Diagnoses Complex ovarian cyst N83.299
[2024-01-26 16:10] VITALS: BP 108/60; BMI 29.8
== END 2024-01-26 16:25 | disposition home or self-care (01) ==
LOC: HO.HWS 16:04
PROVIDERS: PCP Student in an Organized Health Care Education/Training Program; Visit Provider Obstetrics & Gynecology
DX: N83.299 Other ovarian cyst, unspecified side (principal)
CPT/HCPCS: 99213

== ENCOUNTER → 2024-01-26 16:04 | Outpatient (BNVA) | payer OTHER, SELFPAY | PROVIDERS: PCP Student in an Organized Health Care Education/Training Program; Visit Provider Obstetrics & Gynecology | DX: N83.299 Other ovarian cyst, unspecified side (principal); R10.2 Pelvic and perineal pain | CPT/HCPCS: 99212 ==

== ENCOUNTER 2024-04-10 14:21 | Outpatient (REF) | payer OTHER, SELFPAY ==
--- NOTE | ~2024-04-10 | US_ITS ---
EXAMINATION: US PELVIS CLINICAL INFORMATION: Other ovarian cysts, unspecified side Complex ovarian cyst LMP 04/05/2024 COMPARISON: Pelvic ultrasound 01/11/2024, 07/31/2018 TECHNIQUE: Ultrasound of the pelvis is performed using both transabdominal and transvaginal transducers along with Doppler. Transvaginal imaging is performed due to inadequate visualization transabdominally. FINDINGS: Uterus: The uterus is anteverted and measures 7.7 x 3.6 x 5.1 cm. No focal fibroid. The endometrial thickness is 0.2 cm Adnexa: Both ovaries are visualized. There is normal color flow to the adnexa. There is no ovarian torsion. There is no pelvic ascites or fluid collection. Right ovary measures 3.3 x 1.6 x 3.4 cm. Volume 9.4 mL. Left ovary measures 3.3 x 2.0 x 2.4 cm. Volume 8.3 mL. US/US pelvic and transvaginal IMPRESSION: Normal pelvic ultrasound.
== END 2024-04-10 14:22 | disposition home or self-care (01) ==
LOC: HO.US 14:21
PROVIDERS: PCP Student in an Organized Health Care Education/Training Program; Visit Provider Obstetrics & Gynecology
DX: N83.299 Other ovarian cyst, unspecified side (principal)
CPT/HCPCS: 76830; 76856

== ENCOUNTER 2024-04-26 14:10 | Outpatient (AMB) | payer OTHER, SELFPAY ==
--- NOTE | 2024-04-26 14:12 | MHC.OFFVIS ---
Vital Signs 04/26/24 14:13 Height 5 ft 2 in Intake Visit Reasons: annual/BC/US follow up Allergies ferrous sulfate [From [place]] Allergy (Intermediate, Verified 01/26/24 16:10) Itching HPI Comments Details: Presenting for ultrasound follow-up regarding complex ovarian cyst previously seen on ultrasound, report is still pending. The patient is taking her control pills daily with no complaints her menstrual cycle irregular and light with no complaint PFSH Medical History Pelvic pain Surgical History H/O exploratory laparotomy Social History Alcohol intake: current Alcohol intake frequency: holidays/special occasions only Patient Tobacco Use Status: Former Tobacco user Sexual orientation: Straight/Heterosexual Gender identity: Female Female Reproductive History Menstrual Age of Menarche: 8 Date of last pap smear: 01/13/24 Review of Systems Const All systems reviewed & are unremarkable except as noted in HPI and below Reports as per HPI and Reports no additional complaints GI Reports no additional complaints Reports no additional complaints Assessment & Plan Assessment & Plan (1) Complex ovarian cyst: Code(s): N83.299 - Other ovarian cyst, unspecified side Category: Medical Plan: Will check the results the ultrasound and treat accordingly (2) Contraceptive management: Code(s): Z30.9 - Encounter for contraceptive management, unspecified Category: Medical Plan: control pills prescription refilled. Medications: Refilled desogestrel-ethinyl estradiol 0.15-0.03 mg (Apri) 1 tab PO DAILY 28 days 28 tabs 12RF Coding Level of Care Code Est Pt Level 3 (23812) Diagnoses Complex ovarian cyst N83.299 Contraceptive management Z30.9
== END 2024-04-26 14:46 | disposition home or self-care (01) ==
PROVIDERS: Visit Provider Obstetrics & Gynecology
DX: N83.299 Other ovarian cyst, unspecified side (principal); Z30.9 Encounter for contraceptive management, unspecified
CPT/HCPCS: 99213

== ENCOUNTER → 2024-04-26 14:10 | Outpatient (BNVA) | payer OTHER, SELFPAY | PROVIDERS: Visit Provider Obstetrics & Gynecology | DX: N83.299 Other ovarian cyst, unspecified side (principal); Z30.9 Encounter for contraceptive management, unspecified | CPT/HCPCS: 99212 ==

== ENCOUNTER 2024-05-15 14:09 | Outpatient (AMB) | payer OTHER, SELFPAY ==
--- NOTE | 2024-05-15 14:10 | MHC.OFFVIS ---
Intake Visit Reasons: U/S results Allergies ferrous sulfate [From [place]] Allergy (Intermediate, Verified 01/26/24 16:10) Itching HPI Comments Details: The patient is scheduled tele health visit for ultrasound follow-up guarding left complex ovarian cyst identified on ultrasound done in 01/31. Ultrasound done in 05/03 was unremarkable PFS Medical History Pelvic pain Surgical History H/O exploratory laparotomy Social History Alcohol intake: current Alcohol intake frequency: holidays/special occasions only Patient Tobacco Use Status: Former Tobacco user Sexual orientation: Straight/Heterosexual Gender identity: Female Female Reproductive History Menstrual Age of Menarche: 8 Review of Systems Const All systems reviewed & are unremarkable except as noted in HPI and below Reports as per HPI and Reports no additional complaints GI Reports no additional complaints Reports no additional complaints Telehealth Telehealth Telehealth Platform: Telephone Location of provider rendering services: practice address Location of patient: address on file Patient Identification confirmed using: Name, : Yes Telehealth method: video Patient verbally consented to treatment: Yes Patient verbally consented to billing insurance company: Yes Patient informed of any privacy concerns related to visit: Yes Assessment & Plan Assessment & Plan (1) Complex ovarian cyst: Comment: Resolved Code(s): N83.299 - Other ovarian cyst, unspecified side Category: Medical Plan: Discussed with the patient ultrasound findings showing the previously identified complex cyst has resolved. The patient was instructed to call if symptoms recur. All questions were answered the patient verbalized understanding. I spent a total of 20 minutes reviewing the chart, talking to the patient via video and documenting in the medical record. Coding Level of Care Code Tele Est Pt Level 1 (23431) Diagnoses Complex ovarian cyst N83.299
== END 2024-05-15 14:50 | disposition home or self-care (01) ==
LOC: HO.HWS 14:09
PROVIDERS: Visit Provider Obstetrics & Gynecology
DX: N83.299 Other ovarian cyst, unspecified side (principal)
CPT/HCPCS: 99211

== ENCOUNTER → 2024-05-15 14:09 | Outpatient (BNVA) | payer OTHER, SELFPAY | PROVIDERS: Visit Provider Obstetrics & Gynecology ==

== ENCOUNTER 2024-05-17 07:51 | Outpatient (AMB) | payer OTHER, SELFPAY ==
[2024-05-17 07:53] VITALS: BP 110/70
--- NOTE | 2024-05-17 07:53 | A.OFFVIS_ITS ---
Vital Signs 05/17/24 07:53 Height 5 ft 2 in BP 110/70 Intake Visit Reasons: vaginal discharge Manager Editorial: Manager Editorial Present (Kellen) Allergies ferrous sulfate [From [place]] Allergy (Intermediate, Verified 05/17/24 07:53) Itching cold urticaria Adverse Reaction (Unknown, Uncoded 05/17/24 08:01) Unknown Is last menstrual period known: Yes Last menstrual period: 05/02/24 HPI Comments Details: Patient is here today with concerns of increased vaginal discharge, yellow in creamy. She denies any odors irritation, urinary symptoms, pelvic pain. Concerned she may be getting bacterial vaginosis again and wants to have it checked early on. Current control pill user due to history of ovarian cyst. [facility] Surgical History H/O exploratory laparotomy Social History Alcohol intake: current Alcohol intake frequency: holidays/special occasions only Patient Tobacco Use Status: Former Tobacco user Sexual orientation: Straight/Heterosexual Gender identity: Female Female Reproductive History Menstrual Age of Menarche: 8 Date of last menstrual period: 05/02/24 control method: pills Review of Systems Const All systems reviewed & are unremarkable except as noted in HPI and below Physical Exam Vital Signs: Last Vital Signs BP 110/70 05/17/24 07:53 Const General: cooperative, healthy appearing and no acute distress Orientation/consciousness: patient oriented x3 GI Inspection: Yes normal to inspection Palpation (GI): Soft to palpation and Other GI palpation findings present (Nontender) Rectal Exam - Female: visual inspection normal General: Yes bladder normal to palpation External Female Exam: normal appearance of the urethra Speculum Exam - Vagina: normal appearance of the vagina, normal palpation and normal vaginal discharge Speculum Exam - Cervix: normal appearance of the cervix and normal palpation Bimanual exam- vagina & uterus: normal bimanual exam, normal palpation, uterine size normal, bladder normal to palpation, normal palpation, uterine shape normal and non-tender Bimanual Exam- Adnexa, other: normal adnexae Neuro General: patient oriented x3 Assessment & Plan Assessment & Plan (1) Vaginal discharge: Code(s): N89.8 - Other specified noninflammatory disorders of vagina Plan Discussed: Vaginal health, the role of probiotics, boric acid, medication use. BV panel and GC chlamydia obtained await results for plan of care. She is interested in holistic care and natural methods, remedies for common health problems. ParaGard IUD information. Call if any concerns. All of her questions and concerns were addressed to the best of my ability and shared decision making. She is agreeable to the plan of care. This note is constructed using voice recognition software. While every effort has been made to ensure accuracy, [employer] school industrial [employer] teacher errors may have been included. Orders: Orders CT NG by PCR Today N89.8 - Other specified noninflammatory disorders of vagina Bacterial Vaginosis Panel Today N89.8 - Other specified noninflammatory d isorders of vagina Coding Level of Care Code Est Pt Level 3 (02615) Diagnoses Vaginal discharge N89.8
== END 2024-05-17 08:23 | disposition home or self-care (01) ==
PROVIDERS: Visit Provider Advanced Practice Midwife
DX: N89.8 Other specified noninflammatory disorders of vagina (principal)
CPT/HCPCS: 99213

== ENCOUNTER 2024-05-17 07:51 | Outpatient (REF) | payer OTHER, SELFPAY ==
[2024-05-17 16:35] LABS: Bacterial Vaginosis PCR NEGATIVE (Negative); Candida Group PCR NOT DETECTED (Not Detect); Candida glab krusei PCR NOT DETECTED (Not Detect); Trichomonas vaginalis PCR NOT DETECTED (Not Detect)
[2024-05-17 17:12] LABS: CT PCR NOT DETECTED (Not Detect.); NG PCR NOT DETECTED (Not Detect.)
== END 2024-05-17 07:52 | disposition home or self-care (01) ==
LOC: HO.LNP 07:51
PROVIDERS: Visit Provider Advanced Practice Midwife
DX: N89.8 Other specified noninflammatory disorders of vagina (principal)
CPT/HCPCS: 0352U; 87491; 87591; 99212

== ENCOUNTER 2024-05-17 08:18 | Outpatient (REF) | payer OTHER, SELFPAY | END 2024-05-17 08:19 | disposition home or self-care (01) | LOC: HO.LAB 08:18 | PROVIDERS: Visit Provider Advanced Practice Midwife | DX: Z13.89 Encounter for screening for other disorder (principal) ==

== ENCOUNTER 2024-08-21 15:52 | Outpatient (REF) | payer OTHER, SELFPAY ==
[2024-08-21 16:11] LABS: MANUAL DIFF FLAG NO
[2024-08-21 16:41] LABS: Basophils Absolute Auto 0.1 X10*3/uL (0.0-0.2); Basophils Percent Auto 0.7 % (0-2); Eosinophils Absolute Auto 0.4 X10*3/uL (0.0-0.4); Eosinophils Percent Auto 5.9 % (0-4); Hematocrit 43.4 % (37.0-47.0); Hemoglobin 14.7 g/dl (12.0-16.0); Imm Gran Abs Auto 0.01 X10*3/uL (0.00-0.03); Imm Gran Pct Auto 0.1 % (0.0-0.4); Lymphocytes Absolute Auto 2.6 X10*3/uL (1.2-4.9); Lymphocytes Percent Auto 38.7 % (20-40); Mean Corpuscular HGB Conc 33.9 g/dl (31.0-35.0); Mean Corpuscular Hemoglobin 29.7 pg (27.0-33.0); Mean Corpuscular Volume 87.7 fL (80.0-98.0); Mean Platelet Volume 10.2 fL (9.4-12.3); Monocytes Absolute Auto 0.7 X10*3/uL (0.1-1.2); Monocytes Percent Auto 10.3 % (2-11); Neutrophils Percent Auto 44.3 % (45-73); Platelet Count 330 X10*3/uL (160-400); Red Blood Count 4.95 X10*6/uL (4.20-5.50); Red Cell Distribution Width 12.3 % (11.0-16.0); White Blood Count 6.8 X10*3/uL (4.8-10.8)
[2024-08-21 16:45] LABS: Appearance Urine Clear; Color Urine Yellow; Glucose Urine UA Negative (Negative); Leukocyte Esterase Urine Negative (Negative); Nitrite Urine Negative (Negative); PH 6.5 (5.0-9.0); Urine Blood Negative (Negative); Urine Ketones Negative (Negative); Urine Protein Negative (Neg-Trace)
[2024-08-21 17:17] LABS: Alanine Aminotransferase 13 U/L (0-31); Albumin Level 4.2 g/dL (3.5-5.0); Alkaline Phosphatase 86 U/L (39-117); Anion Gap 12 (12-20); Aspartate Amino Transferase 19 U/L (5-31); Bilirubin Total 0.3 mg/dL (0.0-1.0); Blood Urea Nitrogen 9 mg/dL (9-16); Calcium 9.7 mg/dL (8.4-10.2); Carbon Dioxide 27 mmol/L (22-29); Chloride 108 mmol/L (96-108); Cholesterol 158 mg/dL (<200); Estimated Glomerular Filt Rate > 60; Glucose Random 83 mg/dL (60-115); Potassium 3.6 mmol/L (3.3-5.1); Sodium 143 mmol/L (135-145); Total Protein 7.4 g/dL (6.5-8.0)
== END 2024-08-21 15:53 | disposition home or self-care (01) ==
LOC: HO.LAB 15:52
PROVIDERS: PCP Internal Medicine; Visit Provider Internal Medicine
DX: D64.9 Anemia, unspecified (principal); N20.0 Calculus of kidney
CPT/HCPCS: 36415; 80053; 81003; 82465; 85025

== ENCOUNTER 2025-04-10 08:13 | Outpatient (REF) | payer OTHER, SELFPAY ==
--- NOTE | ~2025-04-10 | XR_ITS ---
EXAMINATION: XR ELBOW 3 VIEWS RIGHT HISTORY: M25.521 - Pain in right elbow COMPARISON: Comparison is made with the prior examination dated 04/30/2023. FINDINGS: Three views of the right elbow are submitted. Osseous mineralization is normal. There is no fracture or dislocation. The joint spaces are preserved. The soft tissues are unremarkable. There is no joint effusion. XR/XR elbow RT min 3V IMPRESSION: Unremarkable examination of the right elbow. Electronically signed by: Anthony Morgan MD 04/10/2025 09:27 AM EDT
== END 2025-04-10 08:14 | disposition home or self-care (01) ==
LOC: HO.XRAY 08:13
PROVIDERS: PCP Internal Medicine; Visit Provider Physician Assistant
DX: M25.521 Pain in right elbow (principal); G56.20 Lesion of ulnar nerve, unspecified upper limb; Z13.31 Encounter for screening for depression; Z13.30 Encounter for screening examination for mental health and behavioral disorders, unspecified
CPT/HCPCS: 73080; 99202

== ENCOUNTER 2025-04-10 08:13 | Outpatient (AMB) | payer OTHER, SELFPAY ==
--- NOTE | 2025-04-10 08:19 | A.OFFPC_ITS ---
Vital Signs 04/10/25 08:23 Height 5 ft 2 in Weight 77.111 kg BMI 31.1 BP 100/62 Blood Pressure Location Lt brachial Pulse 80 Pulse Source Pulse Oximeter Temp 97.8 F Temp Source Temporal Artery Scan Pulse Oximetry (%) 99 Oxygen Delivery Method Room Air Intake Visit Reasons: Routine Dr Morrison Bottoming Room Inspector Required: No Accompanied by: Self / Same As Patient Allergies ferrous sulfate (From [place]-Iron) Allergy (Intermediate, Verified 04/10/25 08:20) Itching cold urticaria Adverse Reaction (Unknown, Uncoded 05/17/24 08:01) Unknown Medication List - Last Reconciled 04/10/25 by YVONNE Leonardo arm brace (Elbow Compression Sleeve) As directed ibuprofen 800 mg PO Q8H PRN HPI HPI Comments History of Present Illness Details 24-year-old female without any significa nt past medical history presents to the office today to establish care and for evaluation. She reports for the last 5 days has been experiencing significant pain in the right elbow. She reports that the pain started following exercising at the gym. She states that she was exercising arms with light weights from 10-20 lb but is unsure of the exact exercise. She states initially she felt the pain was in the right wrist radiating to the elbow but is now localized to the right elbow. She describes sharp pain with occasional radiation into the right forearm along the ulna. There was initially swelling of the forearm but no warmth or erythema. She does have a history of tendinitis but states this feels different. Pain is exacerbated with any movement including flexion, extension, pronation. She reports there is a cold sensation at times in the elbow radiating as well, like a shock. No paresthesias. She also reports that she feels a clicking in the elbow. No hx prior injury to the area. She reports pain is worsening. 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 Tried ibuprofen x1 which did help. Tried cold but did not help, some relief with heat. ROS: General: No fevers, malaise, unintentional weight loss Cardiovascular: No chest pain, palpitations, or leg edema Respiratory: No shortness of breath, wheezing, cough MSK: see hpi Neuro: No headaches, weakness, paresthesias Skin: No rashes or lesions EXAM: Constitutional - Awake and Alert, No apparent distress Eyes - PERRL Cardiovascular - S1S2, RRR, No edema Respiratory - Normal lung expansion, Normal respiratory effort, No respiratory distress, CTA bilaterally MSK - tenderness of the R epicondyles bilaterally later > medial with mild swelling in the proximal forearm without erythema or warmth. Full ROM but does note pain with flexion, extension, pronation. No wrist ttp with full ROM. 5/5 RUE strenth Skin - Warm/Dry Neurological - Alert & oriented x3, sensation in tact Psychological - Appropriate affect PFSH Medical History (Updated 04/10/25 @ 08:46 by YVONNE Leonardo) No pertinent past medical history Surgical History H/O exploratory laparotomy Social History Alcohol intake: current Alcohol intake frequency: holidays/special occasions only Patient Tobacco Use Status: Former Tobacco user Sexual orientation: Straight/Heterosexual Gender identity: Female Female Reproductive History Menstrual Age of Menarche: 8 Questionnaire PHQ-9 Over the last 2 weeks, how often have you been bothered by any of the following problems? 1. Little interest or pleasure in doing things: not at all 2. Feeling down, depressed, or hopeless: several days 3. Trouble falling or staying asleep, or sleeping too much: more than half the days 4. Feeling tired or having little energy: not at all 5. Poor appetite or overeating: not at all 6. Feeling bad about yourself - or that you are a failure or have let yourself or your family down: not at all 7. Trouble concentrating on things, such as reading the newspaper or watching television: not at all 8. Moving or speaking so slowly that other people could have noticed. Or the opposite - being so fidgety or restless that you have been moving around a lot more than usual: not at all 9. Thoughts that you would be better off or of hurting yourself in some way: not at all Total score: 3 Source: Developed by Drs. Anthony Baer, Comfort Downey, Gerry Parada and colleagues, with an educational yung from Editor[employer]. Thrive Questionnaire Date Thrive assessed: 04/10/25 I am a: Patient What is your living situation today?: I have a steady place to live Within the past 12 months, did the food you bought not last and you didn't have the money to get more?: Sometimes True Within the past 12 months, did you worry whether your food would run out before you got money to buy more?: Never true Do you have trouble paying for medicines?: No Do you have trouble getting transportation to medical appointments?: No Do you have trouble paying your heating and electricity bill?: No Do you have trouble taking care of your child, family member or friend?: No Do you have trouble with day-to-day activities such as bathing, preparing meals, shopping, managing finances, etc.?: No Are you currently unemployed and looking for a job?: No Are you interested in more education?: No THRIVE Score: 1 ONEYDA-7 AMB Questionnaire ONEYDA-7 Date ONEYDA - 7 assessed: 04/10/25 Feeling nervous, anxious, or on edge: 3 = Nearly every day Not being able to stop or control worryin = Not at all Worrying too much about different things: 0 = Not at all Trouble relaxin = Not at all Being so restless that it is hard to sit still: 0 = Not at all Becoming easily annoyed or irritable: 0 = Not at all Feeling afraid as if something awful might happen: 0 = Not at all Total ONEYDA-7 score (0-4 normal; 5-9 mild; 10-14 moderate; 15-21 severe): 3 Source: Developed by Drs. Anthony Baer, Comfort Downey, Gerry Parada and colleagues, with an educational yung from [employer]. Physical exam (Primary Care) Vital Signs: Last Vital Signs Temp 97.8 F 04/10/25 08:23 Pulse 80 04/10/25 08:23 BP 100/62 04/10/25 08:23 Pulse Ox 99 04/10/25 08:23 Oxygen Delivery Method Room Air 04/10/25 08:23 BMI result Body Mass Index 31.1 Tobacco/Smoking Status: Tobacco use Status Patient Tobacco Use Status Former Tobacco user 04/10/25 08:22 PHQ-9: PHQ-9 Score PHQ-9: Total score 3 04/10/25 09:12 Thrive Assessment: Date of Thrive Assessment Date Thrive assessed 04/10/25 04/10/25 08:30 Coding Level of Care Code New Pt Level 3 (09276) Diagnoses Ulnar neuropathy at elbow G56.20 Right elbow pain M25.521 Assessment & Plan Assessment & Plan (1) Ulnar neuropathy at elbow: Code(s): G56.20 - Lesion of ulnar nerve, unspecified upper limb Category: Medical Plan: Given clinical history, pain possibly r/t an ulnar neuropathy. Recommend ibuprofen 800mg TID prn and heat/ice as tolerated. Recommend rest. Elbow compreesion sleeve ordered. Referred to PT and ortho. Advised to present to an ortho urgent care should pain continue worsening. (2) Right elbow pain: Code(s): M25.521 - Pain in right elbow Category: Medical Plan: As above. xr elbow ordered. Plan Follow up for annual physical exam. Plan as above Orders: Orders XR elbow RT min 3V Today M25.521 - Pain in right elbow PT Evaluation and Treatment Today G56.20 - Lesion of ulnar nerve, unspecified upper limb, M25.521 - Pain in right elbow Referrals Orthopedics Referral G56.20 - Lesion of ulnar nerve, unspecified upper limb, M25.521 - Pain in right elbow Medications: New arm brace (Elbow Compression Sleeve) As directed 1 ea 0RF G56.20 - Lesion of ulnar nerve, unspecified upper limb, M25.521 - Pain in right elbow ibuprofen 800 mg PO Q8H PRN 30 tabs 0RF pain
--- OUTSIDE RECORDS SUMMARY | 2025-04-10 08:19 | XMS_ITS | Data Portability ---
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 Type A tympanograms. This is stable from prior audiogram. Reassurance provided that there is no sign of ear infection. TMs intact and middle ear spaces appear well aerated. I discussed with the patient that I am not entirely sure what is causing her postauricular pain. We discussed that this may be related to her neck, nerve related, or even migraine. TMJ less likely as she is nontender and without crepitance. I have issued her a referral to neurology for further evaluation. [email or web address] Not available 12/22/2024 16:39:12 Plan of Treatment Reminders Order Date Submit Date Provider Last Modified By Organization Details Last Modified Time Details Appointments None recorded. Lab None recorded. Referral neurologist referral 2024 025 [email or web address] [facility] Neurology Scheduling, [address] [place], [address], 15:42:38 Procedures None recorded. Surgeries None recorded. Imaging None recorded. Medication Orders None recorded. Patient TargetsNo targets recorded. Patient InstructionsNo instructions recorded. Reason for Referral Neurologist Referral for Ref erred otalgia of left ear Referring Physician: Job Lopez, Otolaryngology, Encounter Date: 12/22/2024 Results Created Date Observation Date Name Description Value Unit Range Abnormal Flag Note LastModifiedBy Organization Detail LastModifiedTime 12/26/19 25 audio gram No observ ation record ed. BARCODE Not Available 2024 09:21:28 Result Notes None recorded. Problems Name Problem SNOMED Code Status Onset Date Resolution Date Notes Provider Name and Address Organization Details Recorded Time Conductiv e hearing loss, bilateral 559673902 Active 2021 Conductiv e hearing loss, bilateral ; Note: Date Diagnosed : 2 5:20 PM (H90.0) Not Available [facility] 4 02:49:53 Bilateral referred otalgia of ears 75869378812 Active 2024 IBAN GAVIRIA, [facility] [address] [facility],[place] [address], [facility] [place], [address] , [facility] [place] 5 15:59:00 Referred otalgia of left ear 40192221954 Active 2024 JOB LOPEZ PA-C [address] [facility],[place] [address], [facility] [place], [address] , [facility] [place] 5 16:12:41 Problem Notes None recorded. Procedures Surgical History Date Name Laterality Status Provider Name and Address Organization Details Recorded Time 12/22/2024 Air & Speech Audio with Tymps - 09206, 90679 & 04519 completed IABN GAVIRIA, AUD [address] [facility],[place] [address], [place], [address], [facility] [place] 12/22/2024 15:58:52 Imaging Results None recorded. Procedure Notes None recorded. Medical Equipment None Reported. Medications Name Sig Start Date Stop Date Status Note LastModified by Organization Details LastModified Time cetirizine 10 mg tablet active Medication ID: [id number] Bran d Name: cetirizine Send Method: E-Prescribe d Subs Allowed: subs OK Medicati onGenericNa me: cetirizine Not Available Not Available Not Available Vitals Date Recorded Body weight Body mass index (BMI) Body height Provider Name and Address Organization Details Last Updated DateTime 12/22/2024 70106.78 g 29.3 kg/m2 157.48 cm Lidia Cornelius [place] [facility] 12/22/2024 15:40:29 Social History None recorded. Functional Status None recorded. Mental Status None recorded. Family History Nothing Reported. Medical History No medical history recorded. Gynecological HistoryNo gynecological history recorded. Obstetrics History GPAL:G 0 P 0 0 0 0 Past Encounters Encounter ID Performer Location Encounter Start Date Encounter Closed Date Diagnosis/Indication Diagnosis SNOMED-CT Code Diagnosis ICD10 Code Diagnosis Note [id number] JOB LOPEZ PA-C [facility] [address] [place] [address] 12/22/2024 15:30:39 12/22/2024 16:14:26 Bilateral referred otalgia of ears 2167354397 084169 H92.03 Right Ear:Border line normal hearing with excellent speech discrimina tion.Type A tympanogra m.Left Ear:Border line normal hearing with excellent speech discrimina tion.Type A tympanogra m. Referred o talgia of left ear 0795734993 736382 H92.02 Conductive hearing loss, bilateral 015219747 H90.0 Health Concerns Section Related Observation LastModified by Organization Detai ls LastModified Time None Recorded Concern Status LastModified by Organization Details LastModified Time None Recorded Advance Directives Directive None Recorded Payers Insurance Date Sequence Insurance Name Policy Number Policy Moore Covered Member ID Moore Member ID Guarantor Name 12/22/2024 1 [facility] (MEDICAID HMO) [id number] Kelby Staples [id number] Kelby Staples Notes Date Note Type Note Provider Name and Address Organization Details Recorded Time 12/22/2024 text/html 24 year old mak steve presents for evaluation of occasional throbbing behind her left ear. She presented to Dr. Morgan for evaluation of this back in 2021. For the past 4 months it has been more frequent. It generally comes and goes quite quickly. She denies grinding or clenching her teeth. She denies migraines. She denies neck issues but does frequently go to a massage therapist. She denies change in her hearing. At last evaluation she was found to have mild low-frequency conductive hearing loss bilaterally and negative CT temporal bone. RODRIGO FUNG MD [address] [place] [address], [place], [address], [facility] - [facility] 12/24/2024 08:10:46 OBGyn Episode No OBEpisode recorded.
[2025-04-10 08:23] VITALS: BP 100/62; PULSE 80; TEMP 36.6; O2SAT 99; BMI 31.1
== END 2025-04-10 08:55 | disposition home or self-care (01) ==
LOC: HO.HMCHD 08:13
PROVIDERS: PCP Internal Medicine; Visit Provider Physician Assistant
DX: G56.20 Lesion of ulnar nerve, unspecified upper limb (principal); M25.521 Pain in right elbow

== ENCOUNTER → 2025-04-10 09:01 | Outpatient (BNV) | payer OTHER, SELFPAY | PROVIDERS: PCP Internal Medicine; Visit Provider Radiology Diagnostic Radiology | DX: M25.521 Pain in right elbow (principal) | CPT/HCPCS: 73080 ==

== ENCOUNTER 2025-06-21 08:35 | Outpatient (AMB) | payer OTHER, SELFPAY ==
--- NOTE | 2025-06-21 08:36 | A.OFFPC_ITS ---
Vital Signs 06/21/25 08:43 Height 5 ft 2 in Weight 164 lb BMI 30.0 BP 100/62 Blood Pressure Location Rt brachial Position Sitting Respiration 16 Pulse 88 Pulse Source Pulse Oximeter Temp 98.6 F Temp Source Temporal Artery Scan Pulse Oximetry (%) 97 Oxygen Delivery Method Room Air Intake Visit Reasons: Routine Analysis Specialist Required: No Accompanied by: Self / Same As Patient Allergies ferrous sulfate (From [place]-Iron) Allergy (Intermediate, Verified 06/21/25 08:37) Itching cold urticaria Adverse Reaction (Unknown, Uncoded 05/17/24 08:01) Unknown Tobacco use date assessed: 06/21/25 Dental Screening Did you have a dental visit in the last 12 months?: No Did you have a dental problem in the last 6 months where you did not have access to dental care?: Yes Was dental information given to patient?: Yes HPI HPI Comments History of Present Illness Details The patient is a 25-year-old female presenting with complaints of chronic cephalalgia and other ongoing health concerns. The primary concern discussed is a history of severe headaches which have been occurring for several years. The headaches typically start at the back of the left ear and are described as a 10/10 on the pain scale. The pain is reportedly disabling, requiring the patient to cease activities and remove her glasses, though it resolves spontaneously within a few minutes without necessitating analgesics. These headaches initially occurred daily but have decreased in frequency to one to two times per week. The etiology of the headaches remains unclear, with previous evaluations by both ENT and Neurology failing to pinpoint a definitive cause. The patient also reports a loss of hearing in the left ear, which she correlates with her headache episodes. She denies nausea or vomiting but notes extreme fatigue associated with the headaches. The headaches occur sporadically, without any noted triggers or associations with changes in sleep or diet. Additionally, the patient describes an ongoing problem with recurring upper respiratory tract infections. She reports symptoms consistent with a recent upper respiratory infection including rhinorrhea, productive cough, sore throat, and fatigued malaise. This episode began approximately a week ago and is gradually improving. The patient also mentions a raised lesion on her left shoulder, which she has observed enlarging over several years. Initially, the lesion was described as extremely small, but it has since increased in size and developed a textured surface. There have been no significant changes in color or shape that suggest malignant transformation at this time. The patient experiences bilateral knee arthralgia, exacerbated by prolonged standing or activity, which resolves with rest. 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 Medical History: - History of upper respiratory tract inf ections - Chronic cephalalgia - Left ear hearing loss - Knee arthralgia - Raised cutaneous lesion on the shoulde r Diagnostic Results: - Previous evaluations by ENT and Neurol ogy for cephalalgia, with no definitive diagnosis. - No specific diagnostic imaging or lab results discussed. 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 - Exercise: Attends gym regularly, engag es in physical activity. 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 - Patient is sexually active. [facility] Medical History (Updated 06/21/25 @ 09:08 by Vick Cadena MD) Upper respiratory disease Skin lesion Annual physical exam Severe headache No pertinent past medical history Surgical History H/O exploratory laparotomy Social History Housing: Apartment Alcohol intake: current Alcohol intake frequency: holidays/special occasions only Patient Tobacco Use Status: Never used Tobacco e-Cigarette/Vaping Use: Never Used service: Yes Current occupational status: employed Current occupation: [email or web address] Sexual orientation: Straight/Heterosexual Gender identity: Female Female Reproductive History Menstrual Age of Menarche: 8 Questionnaire Thrive Questionnaire Date Thrive assessed: 04/10/25 AUDIT C Alcohol Use Questionnaire (AUDIT-C) 1. How often do you have a drink containing alcohol?: Never 3. How often do you have six or more drinks on one occasion?: Never Total Score: 0 ONEYDA-7 AMB Questionnaire ONEYDA-7 Date ONEYDA - 7 assessed: 04/10/25 Source: Developed by Drs. Anthony Baer, Comfort Downey, Gerry Parada and colleagues, with an educational yung from [employer]. Review of Systems Const Details: - HEENT: Reports nasal congestion, sore throat, productive cough. - Respiratory: Reports cough. - Neurological: Reports severe headaches; denies nausea, vomiting, and weakness. - Musculoskeletal: Reports knee pain. All systems reviewed & are unremarkable except as reviewed in HPI and above Physical exam (Primary Care) Vital Signs: Last Vital Signs Temp 98.6 F 06/21/25 08:43 Pulse 88 06/21/25 08:43 Resp 16 06/21/25 08:43 BP 100/62 06/21/25 08:43 Pulse Ox 97 06/21/25 08:43 Oxygen Delivery Method Room Air 06/21/25 08:43 BMI result Body Mass Index 30.0 Tobacco/Smoking Status: Tobacco use Status Tobacco use date assessed 06/21/25 06/21/25 08:46 Patient Tobacco Use Status Never used Tobacco 06/21/25 08:46 e-Cigarette/Vaping Use Never Used 06/21/25 08:46 Thrive Assessment: Date of Thrive Assessment Date Thrive assessed 04/10/25 06/21/25 08:46 Const Other: General: Alert and oriented, Well nourished, No acute distress. Eye: Pupils are equal, round and reactive to light, Intact accommodation, Extraocular movements are intact, Normal conjunctiva, Vision unchanged. HENT: Normocephalic, Atraumatic, Tympanic membranes are clear, Hearing decreased in the left ear, Oral mucosa is moist, No pharyngeal erythema, Ear canals patent. Respiratory: Lungs CTA bilaterally, No wheeze, Respirations are non-labored. Cardiovascular: Regular rate, Regular rhythm, S1 auscultated, S2 auscultated, No murmur, Good pulses equal in all extremities, Normal peripheral perfusion, No edema. Gastrointestinal: Soft, Non-tender, Non-distended, Normal bowel sounds, No organomegaly. Musculoskeletal: Normal range of motion, Normal strength, No tenderness, No swelling, No deformity, Normal gait, Reports knee pain with activity. Integumentary: Warm, Dry, [place], Intact, Slightly raised lump on the left shoulder, no significant discoloration. Neurologic: Alert, Oriented, Normal sensory, Normal motor function, No focal defects, Cranial Nerves II-XII are grossly intact, Normal deep tendon reflexes. Psychiatric: Cooperative, Appropriate mood & affect, Normal judgment. Coding Level of Care Code Est Pt Level 4 (84931) Diagnoses Severe headache R51.9 Annual physical exam Z00.00 Skin lesion L98.9 Upper respiratory disease J39.9 Assessment & Plan Assessment & Plan (1) Severe headache: Comment: - Initiation of Topamax (Topiramate) 25 mg daily, to be gradually increased to 50 mg for headache prevention. Referral to neurologist for further evaluation. - Associated with severe pain and debilitating, resulting in her having to stop all work. - Also endorses hearing loss on the same side therefore will order MRI to rule out any intracranial pathology given associated hearing loss Code(s): R51.9 - Headache, unspecified Category: Medical (2) Annual physical exam: Comment: - Obtain Baseline Labs Code(s): Z00.00 - Encounter for general adult medical examination without abnormal findings Category: Medical (3) Skin lesion: Comment: - Lesion on left shoulder which is mildly raised and has grown in size over the past few years with changes in color. - Referral to Dermatology for further evaluation. Potential biopsy discussed if changes suggest malignant progression. Code(s): L98.9 - Disorder of the skin and subcutaneous tissue, unspecified Category: Medical (4) Upper respiratory disease: Comment: - Recommend symptomatic management, as the infection shows signs of resolution. No antibiotics due to improving symptoms and absence of severe signs. Code(s): J39.9 - Disease of upper respiratory tract, unspecified Category: Medical Plan: Healthcare Maintenance: - Encourage regular physical activity and continuation of exercise regimen at the gym. - Blood screening panel including cholesterol, diabetes, and thyroid function testing discussed for annual health maintenance. Plan The patient and I discussed the chronic nature of her headaches and the proposed plan to begin Topamax therapy as a preventive measure. The benefits of reducing headache frequency were highlighted, with potential side effects including nausea and tiredness noted. An MRI was advised to rule out serious intracranial causes, though insurance limitations may pose challenges. We also reviewed the patient's chronic knee pain and recommended lifestyle modifications, including weight management and maintaining exercise without overexertion. For her upper respiratory symptoms, symptomatic relief was recommended, noting her gradual improvement without resorting to antibiotics. Due to the apparent benign nature of her shoulder lesion, a dermatological referral was planned for thorough evaluation, prioritizing ease of access within her locale. Orders: Orders Complete Blood Count Auto Diff Today Z00.00 - Encounter for general adult med ical examination without abnormal findings HIV Ab/Ag Today Z00.00 - Encounter for general adult medical examination without abnormal findings Comprehensive Met. Panel Today Z00.00 - Encounter for general adult medical examination without abnormal findings Hemoglobin A1c Today Z00.00 - Encounter for general adult medical examination without abnormal findings Hepatitis A,B,C Profile Today Z00.00 - Encounter for general adult medical examination without abnormal findings Lipid Panel Today Z00.00 - Encounter for general adult medical examination without abnormal findings Syphilis Screen Today Z00.00 - Encounter for general adult medical examination without abnormal findings TSH reflex Free T4 Today Z.00 - Encounter for general adult medical examination without abnormal findings Vitamin D 25-OH Total Today Z00.00 - Encounter for general adult medical examination without abnormal findings MR brain wo/w con w neuroquant Today R51.9 - Headache, unspecified, Z00.00 - Encounter for general adult medical examination without abnormal findings Referrals Neurology Referral R51.9 - Headache, unspecified, Z00.00 - Encounter for general adult medical examination without abnormal findings Dermatology Referral L98.9 - Disorder of the skin and subcutaneous tissue, unspecified Medications: New topiramate (Topamax) 25 mg PO DAILY 30 tabs 0RF 30 days Patient Instructions: - Take Topamax as prescribed by starting with 25 mg daily; gradually increase as directed. - Continue with exercise at the gym and manage knee pain with rest and ice as needed. - Monitor the skin lesion on the shoulder for changes; follow up with dermatology. - Seek immediate care if headaches drastically worsen or present with new symptoms. - Maintain a healthy diet and exercise routine.
[2025-06-21 08:43] VITALS: BP 100/62; PULSE 88; RESP 16; TEMP 37; O2SAT 97
--- OUTSIDE RECORDS SUMMARY | 2025-06-21 09:37 | XMS_ITS | Clinical Summary ---
Author Organization [facility] Address [address] [place] [phone] Phone Care Team Providers Care Support Teacher Name Role Phone Unavailable Primary Care Provider Unavailabl e Allergies Active Allergy Reactions Criticality Noted Date Comments Environmental 02/15/2018 Cold and heat Medications cetirizine 10 MG tablet Take 10 mg by mouth daily. Active Active Problems Problem Noted Date Diagnosed Date Kidney stone 03/14/2015 Overview (06/14/2019): seen early February here with back pain; xray showed L sided 3 mm stone; [facility] she wants to change providers there and plans to go back to see someone else 06/11/19 was seen by Delio RUSSELL at [facility]. Low dose US showed 3 punctate calculi in Right lower pole w/o hydronephrosis. Dx is nephrolithiasis. Rx: diet changes to include 2-3 L H2O daily, decrease salt, limit animal proteins and oxalate foods. FU 1 year and have US done 10 days prior to appt. Assessment & Plan (03/28/2018 2:55 PM EDT): Pt to call for appt with Renal in order to take care of the Stones that she has. Number given to patient. Depressive disorder 12/06/2013 Overview (03/28/2018): Hx of counseling - has been stable, no need at this time Immunizations Immunization Administration Dates Next Due DTP 01/01/1999,1998,1998 DTaP 5 06/08/2002,02/12/2000 HPV, Quadrivalent 07/06/2012,04/21/2011,04/16/20 10 Hep A, ped/adol 12/06/2013,04/21/2011 Hep B, ped/adol 01/01/1999,1998,1998 Hib (PRP-T) 10/21/1999, 9,1998, 998 IPV 06/08/2002, 9,1998, 998 Influenza Split 08/28/2013,07/06/2012 Influenza, injectable, quadrivalent 02/04/2016 MMR 06/08/2002,06/17/1999 Meningococcal Conj (Menactra) MCV4P 02/04/2016,0 04/16/2010 Tdap 04/16/2010 Varicella 03/20/2008,06/17/1999 Family History Medical History Relation Name Comments Nephrolithiasis Brother Luis Daniel Horan Diabetes Maternal Great-Grandmother Strabismus Mother Diabetes Mother's Brother MGU Relation Name Status Comments Brother Luis Daniel Horan Alive Half-Brother Alive Half-Sister Alive Maternal Great-Grandmother Alive Mother Alive Mother's Brother MGU Alive Social History Tobacco Use Types Packs/Day Years Used Date Smoking Tobacco: Never Smokeless Tobacco: Never Tobacco Cessation:Counseling Given: Yes Comments:Never smoker Alcohol Use Standard Drinks/Week Comments No 0 (1 standard drink = 0.6 oz pur e alcohol) Hunger/Food Answer Date Recorded No 04/19/2019 Stable Housing Answer Date Recorded No 10/14/2019 Transportation Concerns Answer Date Rec orded No 04/19/2019 Hazards in Home Answer Date Recorded No 04/19/2019 Financing Utilities Answer Date Recorde d No 04/19/2019 Safety at Home Answer Date Recorded No 04/19/2019 Outside Support Answer Date Recorded No 04/19/2019 Understanding Health Concerns Answer Da te Recorded No 04/19/2019 Financing Health Concerns Answer Date R ecorded No 04/19/2019 Missing School or Work Answer Date Jeb rded No 04/19/2019 Comments No Sex and Gender Information Value Date Recorded Sex Assigned at Not on file Legal Sex Female 4:57 PM EDT Gender Identity Not on file Sexual Orientation Not on file Last Filed Vital Signs Vital Sign Reading Time Taken Comments Blood Pressure 106/70 10/25/2019 6:24 PM EST Pulse 81 10/25/2019 6:24 PM EST Temperature 36.7 C (98 F) 10/25/2019 6:24 PM EST Respiratory Rate - - Oxygen Saturation - - Inhaled Oxygen Concentration - - Weight 59.8 kg (131 lb 12.8 oz) 10/25/2019 6:24 PM EST Height 157.5 cm (5' 2 ) 04/19/2019 2:08 PM EDT Body Mass Index 24.11 04/19/2019 2:08 PM EDT Plan of Treatment Health Maintenance Due Date Last Done Comments DTaP,Tdap,and Td Vaccines (7 - Td or Tdap) 04/16/2020 04/16/2010, 06/08/2002, 02/12/2000, Additional history exists Influenza Vaccines (#1) 2025 02/04/20 16, 08/28/2013, 07/06/2012 COVID-19 Vaccine ( season) 2025 Hepatitis B Vaccines Completed 01/01/1999, 1998, 1998 HIB Vaccines Completed 10/21/1999, 12/10, 1998, Additional history exists IPV Vaccines Completed 06/08/2002, 04/1999, 1998, Additional history exists MMR Vaccines Completed 06/08/2002, 06/17/1999 Varicella Vaccines Completed 03/20/2008, 06/17/1999 HPV Vaccines Completed 07/06/2012, 04/10, 04/16/2010 Hepatitis A Vaccines Completed 12/06/2013, 04/21/20 11 Meningococcal Vaccine Completed 02/04/2016, 010 Men B Vaccine Aged Out No longer elig ible based on patient's age to complete this topic Pneumococcal Vaccine Aged Out No long er eligible based on patient's age to complete this topic Procedures * Due to [place] [employer] law, this organization might not be sharing sensitive test results. Procedure Name Priority Date/Time Associated Diagnosis Comments CHLAMYDIA AND GONORRHEA, AMPLIFIED Routine 04/19/2019 3:20 PM EDT Screening examination for bacterial and spirochetal disease from Last 3 Months or Most Recently Relevant to Health Maintenance Results * Due to [place] [employer] law, this organization might not be sharing sensitive test results. * Chlamydia and Gonorrhoea, Amplified (04/19/2019 3:20 PM EDT) Chlamydia Trachomatis, DNA Probe NEGATIVE (NEG) [facility] Comment: No Chlamydia Trachomatis RNA detected in this patient's sample (REFERENCE RANGE/NORMAL VALUE: NOT DETECTED) Note: This test uses hose mender- mediated amplification method to detect rRNA from C. Trachomatis URINE GC AMP PROBE NEGATIVE (NEG) [facility] Comment: No Neisseria Gonorrhoeae RNA detected in this patient's sample (REFERENCE RANGE/NORMAL VALUE: NOT DETECTED) NOTE: This test uses hose mender-mediated amplification method to detect rRNA from N.Gonorrhoeae. A negative result does not preclude infection. In the case of a negative urine result, testing of an endocervical(female) or urethral (male) specimen is recommended if there is high clinical suspicion of infection. Due to very high sensitivity of Nucleic Acid Amplification Test, false positive results may occur. Therefore, specimen handling is extremely important. In patients in whom the disease is unlikely, additional sample for testing should be considered after an initial positive result. The performance characteristics of this test have not been evaluated in children. The Aptima Combo2 assay is not intended for the evaluation of suspected sexual abuse or for other medico-legal indications. The ordering provider should assess if the patient had consensual sex without risk of sexual abuse. Consult the [facility] if needed. Contact phone number . Therapeutic failure or success cannot be determined with the Aptima Combo2 assay since nucleic acid may persist following appropriate antimicrobial therapy. The Centers for Disease Control and Prevention (CDC) recommends confirmatory retesting using culture or a different nucleic acid amplification test when positive results occur, if indicated. Testing performed or reported by [facility], a Service of [facility], [address] [place] [address] Urine 04/19/2019 3:20 PM EDT 04/19/2019 10:46 PM EDT us Emily Nath MD LAB MICROBIOLOGY - GENERAL ORDERABLES Final Result [facility] from Last 3 Months or Most Recently Relevant to Health Maintenance Insurance [facility] NON PCC
--- OUTSIDE RECORDS SUMMARY | 2025-06-21 09:37 | XMS_ITS | Encounter Summary ---
Author Organization [facility] Address [address] [place] [phone] Phone Care Team Providers Care Pinion Polisher Name Role Phone Emily Nath MD Primary Care Provider Encounter Details Date Type Department Care Team (Late st Contact Info) Description 02/12/2017 Documentation [facility] [place] [address] [place] [address] Family Medicine, Physician [address] [place], [place] [phone] Social History Tobacco Use Types Packs/Day Years Used Date Smoking Tobacco: Never Comments:Never smoker Comments Unknown Sex and Gender Information Value Date Recorded Sex Assigned at Not on file Legal Sex Female 4:57 PM EDT Gender Identity Not on file Sexual Orientation Not on file documented as of this encounter Plan of Treatment Not on file documented as of this encounter Visit Diagnoses Not on filedocumented in this encounter Care Teams Pinion Polisher Relationship Specialty Start Date End Date Emily Nath MD [address] [place] [address] [place] Vasquez [address] PCP - General 05/21/17 01/12/23 documented as of this encounter
--- OUTSIDE RECORDS SUMMARY | 2025-06-21 09:37 | XMS_ITS | Encounter Summary ---
Author Organization [facility] Address [address] [place] [address] Phone Care Team Providers Care Snap Shearer Name Role Phone Emily Nath MD Primary Care Provider [phone] Encounter Details Date Type Department Care Team ([facility] st Contact Info) Description 05/27/2017 Conversion Encounter [facility] [place] [address] [place] [address] Social History Tobacco Use Types Packs/Day Years [...] on filedocumented in this encounter Care Teams Snap Shearer Relationship Specialty Start Date End Date Emily Nath MD [address] [place] [address] PCP - General 05/21/17 01/12/23 documented as of this encounter
--- OUTSIDE RECORDS SUMMARY | 2025-06-21 09:37 | XMS_ITS | Encounter Summary ---
Author Organization [facility] Address [address] [place] [phone] Phone Care Team Providers Care Special Delivery Carrier Name Role Phone Emily Nath MD Primary Care Provider Encounter Details Date Type Department Care Team (Late st Contact Info) Description 01/12/2017 Documentation [facility] [place] [address] [place] [address] Family Medicine, Physician [address], [place] [phone] Social History Tobacco Use Types Packs/Day Years [...] on filedocumented in this encounter Care Teams Special Delivery Carrier Relationship Specialty Start Date End Date Emily Nath MD [address] [place] [address] [place] Vasquez [address] PCP - General 05/21/17 01/12/23 documented as of this encounter
--- OUTSIDE RECORDS SUMMARY | 2025-06-21 09:37 | XMS_ITS | Encounter Summary ---
Author Organization [facility] Address [address] [place] [address] Phone Care Team Providers Care Tongue Lining Stitcher Name Role Phone Emily Nath MD Primary Care Provider Encounter Details Date Type Department Care Team (Late st Contact Info) Description 07/20/2012 Documentation [facility] [place] [address] [place] [address] Family Medicine, Physician [address], [place] [phone] Social History Tobacco Use Types Packs/Day Years Used Date Smoking Tobacco: Never Assessed Comments Unknown Sex and Gender Information Value Date Recorded Sex Assigned at Not on file Legal Sex Female 4:57 PM EDT Gender Identity Not on file Sexual Orientation Not on file documented as of this encounter Plan of Treatment Not on file documented as of this encounter Visit Diagnoses Not on filedocumented in this encounter Care Teams Tongue Lining Stitcher Relationship Specialty Start Date End Date Emily Nath MD [address] [facility] [place] [address] PCP - General 05/21/17 01/12/23 documented as of this encounter
--- OUTSIDE RECORDS SUMMARY | 2025-06-21 09:37 | XMS_ITS | Encounter Summary ---
Author Organization [facility] Address [address] [place] [phone] Phone Care Team Providers Care Open Hearth Worker Name Role Phone Emily Nath MD Primary Care Provider Encounter Details Date Type Department Care Team (Late st Contact Info) Description 07/20/2012 Documentation [facility] [place] [address] [place] [address] Family Medicine, Physician [address] [phone] Social History Tobacco Use Types Packs/Day Years [...] on filedocumented in this encounter Care Teams Open Hearth Worker Relationship Specialty Start Date End Date Emily Nath MD [address] [facility] [place] Vas[place] [address] PCP - General 05/21/17 01/12/23 documented as of this encounter
--- OUTSIDE RECORDS SUMMARY | 2025-06-21 09:37 | XMS_ITS | Encounter Summary ---
Author Organization [facility] Address [address] [place] [address] Phone Care Team Providers Care Resource Efficiency Manager Name Role Phone Emily Nath MD Primary Care Provider Encounter Details Date Type Department Care Team (Late st Contact Info) Description 03/25/2015 Documentation [facility] [place] Family Medicine [address] [place] [address] Family Medicine, Physician [address], [place] [phone] Social History Tobacco Use Types Packs/Day Years [...] on filedocumented in this encounter Care Teams Resource Efficiency Manager Relationship Specialty Start Date End Date Emily Nath MD [address] [facility] [place] [address] PCP - General 05/21/17 01/12/23 documented as of this encounter
--- OUTSIDE RECORDS SUMMARY | 2025-06-21 09:37 | XMS_ITS | Encounter Summary ---
Author Organization [facility] Address [address] [place] [address] Phone Care Team Providers Care Gym Manager Name Role Phone Emily Nath MD Primary Care Provider Encounter Details Date Type Department Care Team (Late st Contact Info) Description 03/13/2015 Documentation [facility] [place] Family Medicine [address] [place] [address] Family Medicine, Physician [address] [place], [place] [phone] Social History Tobacco Use Types Packs/Day Years [...] on filedocumented in this encounter Care Teams Gym Manager Relationship Specialty Start Date End Date Emily Nath MD 150 [facility] [place] [address] PCP - General 05/21/17 01/12/23 documented as of this encounter
--- OUTSIDE RECORDS SUMMARY | 2025-06-21 09:37 | XMS_ITS | Encounter Summary ---
Author Organization [facility] Address [address] [place] [address] Phone Care Team Providers Care Kitchen Clerk Name Role Phone Emily Nath MD Primary Care Provider Encounter Details Date Type Department Care Team (Late st Contact Info) Description 10/18/2014 Documentation [facility] [place] [address] [place] [address] Family Medicine, Physician [address] [place], [place] [phone] Social History Tobacco Use Types Packs/Day Years [...] on filedocumented in this encounter Care Teams Kitchen Clerk Relationship Specialty Start Date End Date Emily Nath MD 150 [facility] [place] [address] PCP - General 05/21/17 01/12/23 documented as of this encounter
--- OUTSIDE RECORDS SUMMARY | 2025-06-21 09:37 | XMS_ITS | Encounter Summary ---
Author Organization [facility] Address [address] [place] [address] Phone Care Team Providers Care Molder Floor Name Role Phone Emily Nath MD Primary Care Provider Encounter Details Date Type Department Care Team (Late st Contact Info) Description 07/19/2012 Documentation [facility] [place] Family Medicine [address] [place] [address] Family Medicine, Physician [address], [place] [phone] Social History Tobacco Use Types Packs/Day Years [...] on filedocumented in this encounter Care Teams Molder Floor Relationship Specialty Start Date End Date Emily Nath MD 150 [facility] [place] [address] PCP - General 05/21/17 01/12/23 documented as of this encounter
== END 2025-06-21 09:21 | disposition home or self-care (01) ==
LOC: HO.HMCHD 08:36
PROVIDERS: PCP Physician Assistant; Visit Provider Student in an Organized Health Care Education/Training Program
DX: R51.9 Headache, unspecified (principal); Z00.00 Encounter for general adult medical examination without abnormal findings; L98.9 Disorder of the skin and subcutaneous tissue, unspecified; J39.9 Disease of upper respiratory tract, unspecified

== ENCOUNTER → 2025-06-21 08:35 | Outpatient (BNVA) | payer OTHER, SELFPAY | PROVIDERS: PCP Internal Medicine; Visit Provider Student in an Organized Health Care Education/Training Program | DX: Z00.00 Encounter for general adult medical examination without abnormal findings (principal); R51.9 Headache, unspecified; L98.9 Disorder of the skin and subcutaneous tissue, unspecified; J39.9 Disease of upper respiratory tract, unspecified | CPT/HCPCS: 99212 ==

== ENCOUNTER 2025-07-03 13:57 | Outpatient (AMB) | payer OTHER, SELFPAY ==
[2025-07-03 14:05] VITALS: BP 90/80; PULSE 87; O2SAT 97; BMI 29.8
--- NOTE | 2025-07-03 14:05 | A.OFFVIS_ITS ---
Vital Signs 07/03/25 14:05 Height 5 ft 2 in Weight 163 lb BMI 29.8 BP 90/80 Blood Pressure Location Rt brachial Position Sitting Pulse 87 Pulse Source Pulse Oximeter Pulse Oximetry (%) 97 Oxygen Delivery Method Room Air Intake Visit Reasons: INP-Headaches Accompanied by: Self / Same As Patient Allergies ferrous sulfate (From [place]-Iron) Allergy (Intermediate, Verified 06/21/25 08:37) Itching cold urticaria Adverse Reaction (Unknown, Uncoded 05/17/24 08:01) Unknown Medication List - Last Reconciled 07/03/25 by JACQUELYN Aguirre arm brace (Elbow Compression Sleeve) As directed B-complex with vitamin C 1 tab PO DAILY fenugreek seed mg PO ginkgo biloba 40 mg PO DAILY indomethacin 25 mg PO TID 30 days HPI Comments Details: Right-handed 25-yr-old female presents for new patient evaluation of headache disorder. PMH is notable for: Depression, kidney stones-possibly triggered by soda intake, left ulnar neuropathy, skin lesion, anemia. Pt reports she started having brief, sharp stabbing left occipital headaches about 4 years ago, without a precipitating cause. Initially, the headache occurred sporadically, and over time, it has increased in frequency, now occurring daily. She had an ENT consult, and work-up was unremarkable other than a higher risk for hard of hearing, and suggested she see neurology instead. Denies any other h/o headache. ROS are notable for: Endorses occasional vision changes, where she sees white lines, which can become black, which is not associated with the left occipital headache. Prone to low BP. Pertinent denials include: Denies other recurrent headaches, migraines, bruxism, shooting neck pain, dizziness, and asthma. Lifestyle considerations * Typical nutrition intake: healthy * Typical fluid intake per day: drinks throughout the day * Caffeine use: 1 cups of per day, usually in the morning * Sleep routine: Usual bedtime: 11pm -2 am and wake-up time: 7 am - 12pm * Sleep difficulties: Endorses: Sleep maintenance difficulties, which he uses small amounts of marijuana for. Endorses snoring, but denies gasping arousals. 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 Headache questionnaire * Types of headache disorders: 1 * Age/time of onset: 22-23 yrs old * Preceding causes: none * Previous work-up: * Head imaging: None * Eye exam: Approximately 1 year ago Typical headache characteristics * Prodrome symptoms: denies * Aura: denies * Pain intensity: severe * Location, quality, characteristics: sudden onset severe sharp stabbing pain in left occipital region * Associated symptoms: difficulty concentrating * Atypical associated symptoms: denies * Postdrome: denies * Aggravating factors during this headache: possibly wearing glasses * Triggers that provoke this headache: denies no known triggers * Time of day this headache usually occurs: No specific time of day * Duration and Frequency: lasts seconds to 1-2 minutes, no more than one attack in a day. frequency is sporadic, but for some time it was occuring once a day at differnet time sof the day * Headache impact on the patient's quality of life: annoying Current treatment strategies * Current acute medication use/interventions: none * Current preventative medication use: none, but is on a vitamin B complex * Current non-pharmacological interventions: Tried ice and warm compress, but these were ineffective. Previous trials: Topiramate 25mg x's 2 days ? ineffective, and caused taste changes and left jaw tightness and tingling when she had a headache attack. [facility] Medical History (Updated 07/03/25 @ 17:33 by JACQUELYN Aguirre) Anemia Upper respiratory disease Skin lesion Annual physical exam Severe headache No pertinent past medical history Surgical History H/O exploratory laparotomy Social History Housing: Apartment Alcohol intake: current Alcohol intake frequency: holidays/special occasions only Patient Tobacco Use Status: Never used Tobacco e-Cigarette/Vaping Use: Never Used service: Yes Current occupational status: employed Current occupation: [employer] Sexual orientation: Straight/Heterosexual Gender identity: Female Female Reproductive History Menstrual Age of Menarche: 8 Physical Exam Vital Signs: Last Vital Signs Pulse 87 07/03/25 14:05 BP 90/80 07/03/25 14:05 Pulse Ox 97 07/03/25 14:05 Oxygen Delivery Method Room Air 07/03/25 14:05 BMI result Body Mass Index 29.8 Const Orientation/consciousness: patient oriented x3 Resp Effort & Inspection: normal respiratory effort and able to speak in complete sentences Neuro Other: No palpable scalp tenderness. Bilateral mild posterior cervical tightness. Cervical ROM: full Left Spurling: normal Right Spurling: normal. General: patient oriented x3 Cranial nerves: Yes CN's II-XII intact bilaterally Cognition (Neuro): normal cognition Gait exam (Neuro): Normal gait present Motor exam (neuro): 5/5 motor strength present throughout Deep tendon reflexes (DTR's): Right triceps reflex intensity grade: 2+, Left triceps reflex intensity grade: 2+, Rt Biceps (C5, C6): 2+, Left biceps reflex intensity grade: 2+, Right brachioradialis reflex intensity grade: 2+, Left brachioradialis reflex intensity grade: 2+, Right patellar reflex intensity grade: 2+ and Left patellar reflex intensity grade: 2+ Coordination: [id number] test normal, tandem gait normal and Romberg test negative Pupils: Normal pupillary reactivity/response: bilateral Psych Appearance: grossly normal Mental Status: mental status grossly normal Speech and movement: Normal speech and movement present Affect: normal affect Attitude: cooperative Thought process: Normal thought process present Assessment & Plan Assessment & Plan (1) Worsening headaches: Code(s): R51.9 - Headache, unspecified Category: Medical (2) Recurrent occipital headache: Code(s): R51.9 - Headache, unspecified Category: Medical (3) Visual aura: Code(s): H53.9 - Unspecified visual disturbance Category: Medical Plan Discussion notes: The patient is advised to undergo further evaluation, which will include a brain MRI with and without contrast, a brain MRA without contrast, and laboratory studies, to assess for secondary etiologies of the worsening left occipital side-locked headache and episodes of visual aura not associated with headache. Your advised to undergo: Brain MRI with and without contrast Brain MRA without contrast Fasting blood work Followed by exam Headache Management Tips * Combining good self-care with some helpful tools can make managing headaches much easier. Healthy Habits ? Eat a balanced diet ? Drink enough water throughout the day, typically at least 64 oz of fluid p er day ? Get regular, adequate sleep consisting of 7-9 hours of sleep per night ? Stay active with routine physical activity, typically at least 30 minutes 5 days per week ? Stay connected with friends and family, enjoy meaningful activities, and take care of your mood Tracking Your Headaches ? Write down when headaches happen, what helps, and any side effects of new treatments ? Tracking is most important after changes in your treatment plan ? Options: - Apps such as Migraine Beny-acknowledging that this headache is not consistent with a migraine headache - A simple paper calendar For left-sided stabbing headache treatment: Start with indomethacin 25 mg capsules, 1 capsule 1-3 times per day. Take with food to avoid GI irritation/upset Check CBC and BMP 2 weeks after starting indomethacin. If indomethacin is well-tolerated but ineffective, we can consider increasing the dose up to 75 mg 3 times per day. Previous trials: Topiramate was ineffective and not tolerated. Ice and warm compress were ineffective. For visual aura: Workup as above Request a follow-up eye exam with your banking specialist. Pt seen in collaboration w/ Dr Brigid Myers. We will follow-up upon review of above and with a follow-up clinic visit in 3 and 6 months or sooner as needed. Orders: Orders MR head/brain wo/w con Today H53.9 - Unspecified visual disturbance, R51.9 - Headache, unspecified MR angio head wo con Today H53.9 - Unspecified visual disturbance, R51.9 - Headache, unspecified DOLLY Reflex Titer and Pattern Today D64.9 - Anemia, unspecified, H53.9 - Unspecified visual disturbance, R51.9 - Headache, unspecified Rheumatoid Factor Today D64.9 - Anemia, unspecified, H53.9 - Unspecified visual disturbance, R51.9 - Headache, unspecified Erythrocyte Sedimentation Rate Today D64.9 - Anemia, unspecified, H53.9 - Unspecified visual disturbance, R51.9 - Headache, unspecified C Reactive Protein Today D64.9 - Anemia, unspecified, H53.9 - Unspecified visual disturbance, R51.9 - Headache, unspecified Vitamin B12 and Folate Today D64.9 - Anemia, unspecified, H53.9 - Unspecified visual disturbance, R51.9 - Headache, unspecified Magnesium Today D64.9 - Anemia, unspecified, H53.9 - Unspecified visual disturbance, R51.9 - Headache, unspecified Ferritin Today D64.9 - Anemia, unspecified, H53.9 - Unspecified visual disturbance, R51.9 - Headache, unspecified IRON PROFILE Today D64.9 - Anemia, unspecified, H53.9 - Unspecified visual disturbance, R51.9 - Headache, unspecified Complete Blood Count Auto Diff 2 Weeks D64.9 - Anemia, unspecified, R51.9 - Headache, unspecified Basic Metabolic Panel 2 Weeks D64.9 - Anemia, unspecified, R51.9 - Headache, unspecified Medications: New indomethacin administer with food or milk 25 mg PO TID 90 caps 0RF 30 days Coding Level of Care Code New Pt Level 4 (70678) Diagnoses Worsening headaches R51.9 Recurrent occipital headache R51.9 Visual aura H53.9
--- OUTSIDE RECORDS SUMMARY | 2025-07-03 17:11 | XMS_ITS | Encounter Summary ---
Author Organization [facility] Address [address] [place] [address] Phone Care Team Providers Care Polisher Apprentice Name Role Phone Emily Nath MD Primary Care Provider Encounter Details Date Type Department Care Team (Late st Contact Info) Description 03/13/2015 Documentation [facility] [place] Medicine [address] [place] [address] Family Medicine, Physician [address], [place] [phone] Social History Tobacco Use Types Packs/Day Years [...] on filedocumented in this encounter Care Teams Polisher Apprentice Relationship Specialty Start Date End Date Emily Nath MD 150 [facility] [place] [address] PCP - General 05/21/17 01/12/23 documented as of this encounter
--- OUTSIDE RECORDS SUMMARY | 2025-07-03 17:11 | XMS_ITS | Clinical Summary ---
Author Organization [facility] Address [address] [place] [address] Phone Care Team Providers Care J2Ee Consultant Name Role Phone Unavailable Primary Care Provider [...] [facility] but she wants to change providers there and plans to go back to see someone else 06/11/19 was seen by Delio RUSSELL at [facility]. Low dose US showed 3 punctate [...] complete this topic Procedures * Due to [place] Verti[employer] law, this organization might not be sharing sensitive test results. Procedure Name Priority Date/Time Associated Diagnosis Comments CHLAMYDIA AND GONORRHEA, AMPLIFIED Routine 04/19/2019 3:20 PM EDT Screening examination for bacterial and spirochetal disease from Last 3 Months or Most Recently Relevant to Health Maintenance Results * Due to [place] Verti[employer] law, this organization might not be sharing sensitive test results. * Chlamydia and Gonorrhoea, Amplified (04/19/2019 3:20 PM EDT) Chlamydia Trachomatis, DNA Probe NEGATIVE (NEG) [facility] Comment: No Chlamydia Trachomatis RNA detected in this patient's sample (REFERENCE RANGE/NORMAL VALUE: NOT DETECTED) Note: This test uses pipe or steam fitter furnace installer- mediated amplification method to detect rRNA from C. Trachomatis URINE GC AMP PROBE NEGATIVE (NEG) [facility] Comment: No Neisseria Gonorrhoeae RNA detected in this patient's sample (REFERENCE RANGE/NORMAL VALUE: NOT DETECTED) NOTE: This test uses pipe or steam fitter furnace installer-mediated amplification method to detect rRNA from N.Gonorrhoeae. [...] without risk of sexual abuse. Consult the [facility] if needed. Contact phone number . Therapeutic failure or success cannot be determined with the Aptima Combo2 assay since nucleic acid may persist following appropriate antimicrobial therapy. The Centers for Disease Control and Prevention (CDC) recommends confirmatory retesting using culture or a different nucleic acid amplification test when positive results occur, if indicated. Testing performed or reported by [facility], a Service of [facility], [address] [place] [address] Urine 04/19/2019 3:20 PM EDT 04/19/2019 10:46 PM EDT us Emily Nath MD LAB MICROBIOLOGY - GENERAL ORDERABLES Final Result [facility] from Last 3 Months or Most Recently Relevant to Health Maintenance Insurance [facility] NON PCC
--- OUTSIDE RECORDS SUMMARY | 2025-07-03 17:11 | XMS_ITS | Encounter Summary ---
Author Organization [facility] Address [address] [place] [address] Phone Care Team Providers Care Nip Wrapper Name Role Phone Emily Nath MD Primary Care Provider Encounter Details Date Type Department Care Team (Late st Contact Info) Description 03/25/2015 Documentation [facility] [place] [address] [place] [address] Family Medicine, Physician [address], [place] [phone] Social History Tobacco Use Types Packs/Day Years [...] on filedocumented in this encounter Care Teams Nip Wrapper Relationship Specialty Start Date End Date Emily Nath MD 150 [facility] [place] [address] PCP - General 05/21/17 01/12/23 documented as of this encounter
--- OUTSIDE RECORDS SUMMARY | 2025-07-03 17:11 | XMS_ITS | Encounter Summary ---
Author Organization [facility] Address [address] [place] [address] Phone Care Team Providers Care Tobacco Educator Name Role Phone Emily Nath MD Primary Care Provider Encounter Details Date Type Department Care Team ([facility] st Contact Info) Description 05/27/2017 Conversion Encounter [facility] [place] [address] [place] [address] Social History Tobacco Use Types Packs/Day Years [...] on filedocumented in this encounter Care Teams Tobacco Educator Relationship Specialty Start Date End Date Emily Nath MD 150 [place] [address] PCP - General 05/21/17 01/12/23 documented as of this encounter
--- OUTSIDE RECORDS SUMMARY | 2025-07-03 17:11 | XMS_ITS | Encounter Summary ---
Author Organization [facility] Address [address] [place] [address] Phone Care Team Providers Care Melter Helper Name Role Phone Emily Nath MD Primary Care Provider Encounter Details Date Type Department Care Team (Late st Contact Info) Description 07/20/2012 Documentation [facility] [place] Family Medicine [address] [place] [address] Family Medicine, Physician [address], [place] [phone] Social History Tobacco Use Types Packs/Day Years [...] on filedocumented in this encounter Care Teams Melter Helper Relationship Specialty Start Date End Date Emily Nath MD 150 [facility] [place] Vas[place] [address] PCP - General 05/21/17 01/12/23 documented as of this encounter
--- OUTSIDE RECORDS SUMMARY | 2025-07-03 17:11 | XMS_ITS | Encounter Summary ---
Author Organization [facility] Address [address] [place] [address] Phone Care Team Providers Care Major Assembly Inspector Name Role Phone Emily Nath MD Primary Care Provider Encounter Details Date Type Department Care Team (Late st Contact Info) Description 10/18/2014 Documentation [facility] [place] Family Medicine [address] [place] [address] Family Medicine, Physician [address] [place], [place] [phone] Social History Tobacco Use Types Packs/Day Years [...] on filedocumented in this encounter Care Teams Major Assembly Inspector Relationship Specialty Start Date End Date Emily Nath MD 150 [facility] [place] Vas[place] [address] PCP - General 05/21/17 01/12/23 documented as of this encounter
--- OUTSIDE RECORDS SUMMARY | 2025-07-03 17:11 | XMS_ITS | Encounter Summary ---
Author Organization [facility] Address [address] [place] [address] Phone Care Team Providers Care Steam Cleaner Name Role Phone Emily Nath MD Primary Care Provider [phone] Encounter Details Date Type Department Care Team (Late st Contact Info) Description 07/19/2012 Documentation [facility] [place] [address] [place] [address] Family Medicine, Physician [address], [place] [phone] Social History Tobacco Use Types Packs/Day Years [...] on filedocumented in this encounter Care Teams Steam Cleaner Relationship Specialty Start Date End Date Emily Nath MD [address] [facility] [place] [address] PCP - General 05/21/17 01/12/23 documented as of this encounter
--- OUTSIDE RECORDS SUMMARY | 2025-07-03 17:11 | XMS_ITS | Encounter Summary ---
Author Organization [facility] Address [address] [place] [address] Phone Care Team Providers Care Battery Starter Name Role Phone Emily Nath MD Primary Care Provider Encounter Details Date Type Department Care Team (Late st Contact Info) Description 02/12/2017 Documentation [facility] [place] Family Medicine [address] [place] [address] Family Medicine, Physician [address], [place] [phone] Social History Tobacco Use Types Packs/Day Years [...] on filedocumented in this encounter Care Teams Battery Starter Relationship Specialty Start Date End Date Emily Nath MD [address] [place] [address] [place] Vasquez [address] PCP - General 05/21/17 01/12/23 documented as of this encounter
--- OUTSIDE RECORDS SUMMARY | 2025-07-03 17:11 | XMS_ITS | Encounter Summary ---
Author Organization [facility] Address [address] [place] [address] Phone Care Team Providers Care Care Asst Name Role Phone Emily Nath MD Primary Care Provider Encounter Details Date Type Department Care Team (Late st Contact Info) Description 07/20/2012 Documentation [facility] [place] Family Medicine [address] [place] [address] Family Medicine, Physician [address], [place] [phone] Social History Tobacco Use Types Packs/Day Years [...] on filedocumented in this encounter Care Teams Care Asst Relationship Specialty Start Date End Date Emily Nath MD 150 [facility] [place] [address] PCP - General 05/21/17 01/12/23 documented as of this encounter
--- OUTSIDE RECORDS SUMMARY | 2025-07-03 17:11 | XMS_ITS | Encounter Summary ---
Author Organization [facility] Address [address] [place] [address] Phone Care Team Providers Care Manager Acquisition Name Role Phone Emily Nath MD Primary Care Provider Encounter Details Date Type Department Care Team (Late st Contact Info) Description 01/12/2017 Documentation [facility] [place] [address] [place] [address] Family Medicine, Physician [address] [place], [place] [phone] Social History Tobacco Use Types Packs/Day Years [...] on filedocumented in this encounter Care Teams Manager Acquisition Relationship Specialty Start Date End Date Emily Nath MD [address] [place] [address] [place] Vas[place] [address] PCP - General 05/21/17 01/12/23 documented as of this encounter
== END 2025-07-03 15:39 | disposition home or self-care (01) ==
LOC: HO.HSMS 13:58
PROVIDERS: PCP Physician Assistant; Visit Provider Nurse Practitioner Family
DX: R51.9 Headache, unspecified (principal); H53.9 Unspecified visual disturbance
CPT/HCPCS: 99204

== ENCOUNTER → 2025-07-03 13:57 | Outpatient (BNVA) | payer OTHER, SELFPAY | PROVIDERS: PCP Physician Assistant; Visit Provider Nurse Practitioner Family | DX: H53.9 Unspecified visual disturbance (principal); R51.9 Headache, unspecified | CPT/HCPCS: 99202 ==

== ENCOUNTER 2025-07-07 09:54 | Outpatient (REF) | payer OTHER, SELFPAY ==
--- OUTSIDE RECORDS SUMMARY | 2025-07-07 09:58 | XMS_ITS | Encounter Summary ---
Author Organization [facility] Address [address] [place] [address] Phone Care Team Providers Care Boot And Shoe Repairman Name Role Phone Emily Nath MD Primary Care Provider Encounter Details Date Type Department Care Team (Late st Contact Info) Description 02/12/2017 [place]ation [facility] [place] [address] [place] [address] Family Medicine, Physician [address], [place] [phone] Social History Tobacco Use Types Packs/Day Years [...] on filedocumented in this encounter Care Teams Boot And Shoe Repairman Relationship Specialty Start Date End Date Emily Nath MD [address] [place] [address] YOLANDA Vasquez [address] PCP - General 05/21/17 01/12/23 documented as of this encounter
--- OUTSIDE RECORDS SUMMARY | 2025-07-07 09:58 | XMS_ITS | Encounter Summary ---
Author Organization [facility] Address [address] [place] [address] Phone Care Team Providers Care Oil Rigger Name Role Phone Emily Nath MD Primary Care Provider Encounter Details Date Type Department Care Team (Late st Contact Info) Description 07/20/2012 Documentation [facility] [place] [address] [place] [address] Family Medicine, Physician [address] [place], [place] [phone] Social History Tobacco Use Types Packs/Day Years [...] on filedocumented in this encounter Care Teams Oil Rigger Relationship Specialty Start Date End Date Emily Nath MD [address] [facility] YOL[place]DA Vasquez [address] PCP - General 05/21/17 01/12/23 documented as of this encounter
--- OUTSIDE RECORDS SUMMARY | 2025-07-07 09:58 | XMS_ITS | Clinical Summary ---
Author Organization [facility] Address [address] [place] [address] Phone Care Team Providers Care Industrial Sales Manager Name Role Phone Unavailable Primary Care Provider [...] [facility] but she wants to change providers there and plans to go back to see someone else 06/11/19 was seen by Delio RUSSELL at [facility]. Low dose US showed 3 [...] complete this topic Procedures * Due to [place] law, this organization might not be sharing sensitive test results. Procedure Name Priority Date/Time Associated Diagnosis Comments CHLAMYDIA AND GONORRHEA, AMPLIFIED Routine 04/19/2019 3:20 PM EDT Screening examination for bacterial and spirochetal disease from Last 3 Months or Most Recently Relevant to Health Maintenance Results * Due to [place] law, this organization might not be sharing sensitive test results. * Chlamydia and Gonorrhoea, Amplified (04/19/2019 3:20 PM EDT) Chlamydia Trachomatis, DNA Probe NEGATIVE (NEG) [facility] Comment: No Chlamydia Trachomatis RNA detected in this patient's sample (REFERENCE RANGE/NORMAL VALUE: NOT DETECTED) Note: This test uses referral and information aide- mediated amplification method to detect rRNA from C. Trachomatis URINE GC AMP PROBE NEGATIVE (NEG) [facility] Comment: No Neisseria Gonorrhoeae RNA detected in this patient's sample (REFERENCE RANGE/NORMAL VALUE: NOT DETECTED) NOTE: This test uses referral and information aide-mediated amplification method to detect rRNA from N.Gonorrhoeae. [...] without risk of sexual abuse. Consult the [facility] if needed. Contact phone number . Therapeutic failure or success cannot be determined with the Aptima Combo2 assay since nucleic acid may persist following appropriate antimicrobial therapy. The Centers for Disease Control and Prevention (CDC) recommends confirmatory retesting using culture or a different nucleic acid amplification test when positive results occur, if indicated. Testing performed or reported by [facility], a Service of [facility], [address] [place] [address] Urine 04/19/2019 3:20 PM EDT 04/19/2019 10:46 PM EDT us Emily Nath MD LAB MICROBIOLOGY - GENERAL ORDERABLES Final Result [facility] from Last 3 Months or Most Recently Relevant to Health Maintenance Insurance [facility] NON PCC
--- OUTSIDE RECORDS SUMMARY | 2025-07-07 09:58 | XMS_ITS | Encounter Summary ---
Author Organization [facility] Address [address] [place] [address] Phone Care Team Providers Care Cardiology Coordinator Name Role Phone Emily Nath MD Primary Care Provider Encounter Details Date Type Department Care Team (Late st Contact Info) Description 03/25/2015 Documentation [facility] [place] [address] [place] [address] Family Medicine, Physician [address] [place], [place] [phone] Social History Tobacco Use Types Packs/Day Years [...] on filedocumented in this encounter Care Teams Cardiology Coordinator Relationship Specialty Start Date End Date Emily Nath MD [address] [facility] YOLANDA Vasquez [address] PCP - General 05/21/17 01/12/23 documented as of this encounter
--- OUTSIDE RECORDS SUMMARY | 2025-07-07 09:58 | XMS_ITS | Encounter Summary ---
Author Organization [facility] Address [address] [place] [address] Phone Care Team Providers Care Support Architect Name Role Phone Emily Nath MD Primary Care Provider Encounter Details Date Type Department Care Team ([facility] st Contact Info) Description 05/27/2017 Conversion Encounter [facility] [place] [address] [place] [address] Social History Tobacco Use Types Packs/Day Years [...] on filedocumented in this encounter Care Teams Support Architect Relationship Specialty Start Date End Date Emily Nath MD [address] [place] [address] PCP - General 05/21/17 01/12/23 documented as of this encounter
--- OUTSIDE RECORDS SUMMARY | 2025-07-07 09:58 | XMS_ITS | Encounter Summary ---
Author Organization [facility] Address [address] [place] [address] Phone Care Team Providers Care Strip Cutting Machine Operator Name Role Phone Emily Nath MD Primary Care Provider Encounter Details Date Type Department Care Team (Late st Contact Info) Description 03/13/[address] [facility] [place] [address] [place] [address] Family Medicine, Physician [address] [place], [place] [phone] Social History Tobacco Use Types Packs/Day Years [...] on filedocumented in this encounter Care Teams Strip Cutting Machine Operator Relationship Specialty Start Date End Date Emily Nath MD [address] [facility] YOLANDA Vasquez [address] PCP - General 05/21/17 01/12/23 documented as of this encounter
--- OUTSIDE RECORDS SUMMARY | 2025-07-07 09:58 | XMS_ITS | Encounter Summary ---
Author Organization [facility] Address [address] [place] [address] Phone Care Team Providers Care Supervisor Estimator And Drafter Name Role Phone Emily Nath MD Primary Care Provider Encounter Details Date Type Department Care Team (Late st Contact Info) Description 01/12/2017 Documentation [facility] [place] Medicine [address] [place] [address] Family Medicine, Physician [address] [place], [place] [phone] Social History Tobacco Use Types Packs/Day Years [...] on filedocumented in this encounter Care Teams Supervisor Estimator And Drafter Relationship Specialty Start Date End Date Emily Nath MD [address] [place] [address] YOLANDA Vasquez [address] PCP - General 05/21/17 01/12/23 documented as of this encounter
--- OUTSIDE RECORDS SUMMARY | 2025-07-07 09:58 | XMS_ITS | Encounter Summary ---
Author Organization [facility] Address [address] [place] [address] Phone Care Team Providers Care Public Health Internship Name Role Phone Emily Nath MD Primary Care Provider Encounter Details Date Type Department Care Team (Late st Contact Info) Description 10/18/2014 [place]ation [facility] [place] [address] [place] [address] Family Medicine, Physician [address] [place] [phone] Social History Tobacco Use Types Packs/Day Years [...] on filedocumented in this encounter Care Teams Public Health Internship Relationship Specialty Start Date End Date Emily Nath MD [address] [facility] YOL[place]DA Vasquez [address] PCP - General 05/21/17 01/12/23 documented as of this encounter
--- OUTSIDE RECORDS SUMMARY | 2025-07-07 09:58 | XMS_ITS | Encounter Summary ---
Author Organization [facility] Address [address] [place] [address] Phone Care Team Providers Care Patient Relations Specialist Name Role Phone Emily Nath MD Primary Care Provider Encounter Details Date Type Department Care Team (Late st Contact Info) Description 07/20/2012 Documentation [facility] [place] [address] [place] [address] Family Medicine, Physician [address] [place], [place] [phone] Social History Tobacco Use Types Packs/Day Years [...] on filedocumented in this encounter Care Teams Patient Relations Specialist Relationship Specialty Start Date End Date Emily Nath MD [address] [facility] YOLANDA Vasquez [address] PCP - General 05/21/17 01/12/23 documented as of this encounter
--- OUTSIDE RECORDS SUMMARY | 2025-07-07 09:58 | XMS_ITS | Encounter Summary ---
Author Organization [facility] Address [address] [place] [address] Phone Care Team Providers Care Shopper'S Aide Name Role Phone Emily Nath MD Primary Care Provider Encounter Details Date Type Department Care Team (Late st Contact Info) Description 07/19/2012 Documentation [facility] [place] [address] [place] [address] Family Medicine, Physician [address] [place], [place] [phone] Social History Tobacco Use Types Packs/Day Years [...] on filedocumented in this encounter Care Teams Shopper'S Aide Relationship Specialty Start Date End Date Emily Nath MD [address] [facility] YOLANDA Vasquez [address] PCP - General 05/21/17 01/12/23 documented as of this encounter
[2025-07-07 10:13] LABS: MANUAL DIFF FLAG NO
[2025-07-07 11:36] LABS: Hematocrit 43.1 % (37.0-47.0); Hemoglobin 14.4 g/dl (12.0-16.0); Imm Gran Abs Auto 0.02 X10*3/uL (0.00-0.03); Imm Gran Pct Auto 0.4 % (0.0-0.4); Lymphocytes Absolute Auto 2.1 X10*3/uL (1.2-4.9); Mean Corpuscular HGB Conc 33.4 g/dl (31.0-35.0); Mean Corpuscular Hemoglobin 28.9 pg (27.0-33.0); Mean Corpuscular Volume 86.5 fL (80.0-98.0); NRBC Abs Auto 0.000 X10*3/uL (0.0-0.012); NRBC Pct Auto 0.0 /100WBC (0.0-0.2); Platelet Count 313 X10*3/uL (160-400); Red Blood Count 4.98 X10*6/uL (4.20-5.50); White Blood Count 5.7 X10*3/uL (4.8-10.8)
[2025-07-07 11:37] LABS: Hematocrit 42.9 % (37.0-47.0); Hemoglobin 14.4 g/dl (12.0-16.0); Imm Gran Abs Auto 0.02 X10*3/uL (0.00-0.03); Imm Gran Pct Auto 0.3 % (0.0-0.4); Lymphocytes Absolute Auto 2.1 X10*3/uL (1.2-4.9); Mean Corpuscular HGB Conc 33.6 g/dl (31.0-35.0); Mean Corpuscular Hemoglobin 29.2 pg (27.0-33.0); Mean Corpuscular Volume 87.0 fL (80.0-98.0); NRBC Abs Auto 0.000 X10*3/uL (0.0-0.012); NRBC Pct Auto 0.0 /100WBC (0.0-0.2); Platelet Count 327 X10*3/uL (160-400); Red Blood Count 4.93 X10*6/uL (4.20-5.50); White Blood Count 5.8 X10*3/uL (4.8-10.8)
[2025-07-07 11:51] LABS: Total Hemoglobin (HGBA1C) 3691.3175 umol/L
[2025-07-07 12:11] LABS: Alanine Aminotransferase 15 U/L (0-31); Albumin Level 4.3 g/dL (3.5-5.0); Alkaline Phosphatase 95 U/L (39-117); Anion Gap 11 (12-20); Aspartate Amino Transferase 21 U/L (5-31); Blood Urea Nitrogen 9 mg/dL (9-16); Calcium 9.3 mg/dL (8.4-10.2); Carbon Dioxide 26 mmol/L (22-29); Chloride 109 mmol/L (96-108); Cholesterol 147 mg/dL (<200); Estimated Glomerular Filt Rate > 60; HDL Cholesterol 41 mg/dL (>40); Iron 149 mcg/dL (30-160); Magnesium 2.0 mg/dL (1.6-2.6); Percent Iron Saturation 61 % (15-50); Potassium 3.6 mmol/L (3.3-5.1); Sodium 142 mmol/L (135-145); Total Iron Binding Capacity 245 mcg/dL (228-428); Total Protein 7.0 g/dL (6.5-8.0); Triglycerides 76 mg/dL (<150); Unsaturated Iron Binding 96 ug/dL
[2025-07-07 12:28] LABS: Ferritin 106 ng/mL (10-122)
[2025-07-07 12:29] LABS: Folate 11.5 ng/mL (> or = 4.0); Vitamin B12 559 pg/mL (200-900)
[2025-07-09 04:05] LABS: Syphilis Screen Nonreactive (Nonreactive)
[2025-07-09 04:44] LABS: HBS Num1 1.17 mIU/mL (0-7.99); HBc Num1 0.06 S/CO (0.00-0.79); HBsAGNum1 0.32 S/CO (0.00-0.99); HIV Num 1 0.05 S/CO (0.00-0.99); Hepatitis A Antibody IgM 0.22 Index (0-0.79); Hepatitis B Surface Antigen Negative (Negative); ~HepC Num1 0.16 S/CO (0.00-0.79); ~Hepatitis A Antibody IgM Nonreactive (Nonreactive); ~Hepatitis B Surface Antibody NONREACTIVE (Nonreactive); ~Hepatitis C Antibody Nonreactive (Nonreactive)
[2025-07-12 21:29] LABS: Anti Nuclear Antibody Pattern Nuclear, Speckled; Anti Nuclear Antibody Screen POSITIVE (NEGATIVE); Anti Nuclear Antibody Titer 1:40 titer
== END 2025-07-07 09:55 | disposition home or self-care (01) ==
LOC: HO.LAB 09:54
PROVIDERS: Absent Provider Student in an Organized Health Care Education/Training Program; PCP Student in an Organized Health Care Education/Training Program; Visit Provider Nurse Practitioner Family
DX: Z00.00 Encounter for general adult medical examination without abnormal findings (principal); Z11.4 Encounter for screening for human immunodeficiency virus [HIV]; Z11.59 Encounter for screening for other viral diseases; H53.9 Unspecified visual disturbance; R51.9 Headache, unspecified
CPT/HCPCS: 36415; 80053; 80061; 82306; 82607; 82728; 82746; 83036; 83540; 83735; 84443; 85025; 85652; 86038; 86039; 86140; 86431; 86704; 86706; 86709; 86780; 86803; 87340; 87389

== ENCOUNTER → 2025-07-19 08:00 | Outpatient (BNV) | payer OTHER, SELFPAY | PROVIDERS: PCP Student in an Organized Health Care Education/Training Program; Visit Provider Radiology Diagnostic Radiology | DX: H53.9 Unspecified visual disturbance (principal); R51.9 Headache, unspecified | CPT/HCPCS: 70544 ==

== ENCOUNTER 2025-07-19 08:04 | Outpatient (REF) | payer OTHER, SELFPAY ==
--- NOTE | ~2025-07-19 | MR_ITS ---
EXAMINATION: MR BRAIN WITHOUT AND WITH CONTRAST CLINICAL INFORMATION: Headache, unspecified. Patient states throbbing, stabbing painful headaches, left posterior head x years, getting worse. COMPARISON: None available. TECHNIQUE: Multiplanar, multisequence MRI of the brain was obtained before and after the intravenous administration of 7.5 mL Gadavist. Examination performed on a 1.5 Yasmeen Siemens high-field unit. FINDINGS: There is no diffusion restriction. There is no intracranial hemorrhage, acute infarction, mass effect, or edema. Ventricles, sulci, and cisterns are normal in size and configuration for patient age. No shift of midline. No abnormal hemosiderin deposition is identified. There are no significant white matter signal abnormalities. There is no abnormal intra or extra-axial contrast enhancement after the administration of contrast. Midline structures appear normally formed. The pituitary gland appears normal. Posterior fossa structures appear normal. Cerebellar tonsils are appropriately located. Major flow voids are preserved within the skull base. The globes and orbital contents demonstrate no abnormalities. There is no significant paranasal sinus disease. Nasal septum is midline without spur. The mastoids and tympanic cavities are normally aerated. Extracranial soft tissues demonstrate no abnormalities. No suspicious bone marrow changes are evident. Atlantoaxial joint is normal. MR/MR head/brain wo/w con IMPRESSION: 1. No evidence of intracranial hemorrhage, acute infarction, mass effect, edema, or abnormal contrast enhancement. Normal MRI of the brain. Electronically signed by: Sukumar Schafer MD 07/19/2025 09:16 AM EDT
--- NOTE | ~2025-07-19 | MR_ITS ---
CLINICAL HISTORY: H53.9 - Unspecified visual disturbance MR Angiography head without gadolinium Comparison: None provided Findings Intracranial internal carotid arteries are normal. Vertebrobasilar system intact. Cerebral arteries are patent. Visualized cerebellar arteries are patent. IMPRESSION: Normal MRA brain This document has been electronically signed by: Maurilio Ardon MD on 07/20/2025 10:16:07
== END 2025-07-19 08:05 | disposition home or self-care (01) ==
LOC: HO.MRI 08:04
PROVIDERS: PCP Student in an Organized Health Care Education/Training Program; Visit Provider Nurse Practitioner Family
DX: R51.9 Headache, unspecified (principal); H53.9 Unspecified visual disturbance
CPT/HCPCS: 70544; 70553; A9585

== ENCOUNTER 2025-08-15 09:02 | Outpatient (AMB) | payer OTHER, SELFPAY ==
[2025-08-15 08:31] VITALS: BP 111/65; PULSE 80; TEMP 36.6; O2SAT 99; BMI 30.6
--- NOTE | 2025-08-15 08:31 | A.OFFPC_ITS ---
Vital Signs 08/15/25 08:31 Height 5 ft 2 in Weight 167 lb 2 oz BMI 30.6 BP 111/65 Blood Pressure Location Rt brachial Position Sitting Pulse 80 Pulse Source Pulse Oximeter Temp 97.9 F Temp Source Temporal Artery Scan Pulse Oximetry (%) 99 Oxygen Delivery Method Room Air Intake Visit Reasons: follow up meds and lab Chrome Tanning Drum Operator Required: No Accompanied by: Self / Same As Patient Allergies ferrous sulfate (From [place]-Iron) Allergy (Intermediate, Verified 08/15/25 08:31) Itching cold urticaria Adverse Reaction (Unknown, Uncoded 05/17/24 08:01) Unknown Medication List - Last Reconciled 08/15/25 by Vick Cadena MD arm brace (Elbow Compression Sleeve) As directed B-complex with vitamin C 1 tab PO DAILY buspirone 5 mg PO BID 30 days cholecalciferol (vitamin D3) 1,250 mcg PO QWEEK 12 weeks fenugreek seed mg PO ginkgo biloba 40 mg PO DAILY indomethacin 25 mg PO TID 30 days Tobacco use date assessed: 08/15/25 Dental Screening Dental Screen Date: 08/15/25 Did you have a dental visit in the last 12 months?: No Did you have a dental problem in the last 6 months where you did not have access to dental care?: No HPI HPI Comments History of Present Illness Details The patient is a 25-year-old female presenting for follow-up and management of severe headaches. She was seen by a neurologist and underwent an MRI, which was normal. She was prescribed indomethacin, which she feels has been working, though she still experiences headaches, with the last episode occurring on the 3rd of the month. The recent headaches are described as dull and intermittent, accompanied by neck pain radiating to her shoulder. She denies using ybmx-mud-czmsaxr pain medications like Tylenol or ibuprofen. The patient reports a loss of appetite and heartburn, which may be side effects of the indomethacin. She has a history of vitamin D deficiency and was started on a weekly 50,000 unit supplement on 07/07. Past lab work showed a normal A1c of 5.2, normal iron levels, and normal cholesterol. She has a history of referred ear pain and was previously evaluated by an ENT, who found her ears to be normal. The patient reports long-standing feelings of depression and anxiety. She was previously on buspirone, which she felt did not help her anxiety. She attempted to get a referral for mental health therapy four or five years ago but never received a call back after her initial intake. She reports snoring at night and not feeling rested in the morning. She has an appointment with a stove refinisher next year for a skin lesion, which she believes has remained the same size. Her last Pap smear was within the normal timeframe, with the next one due in 2026. Medical History: - Severe headaches - Depression and anxiety, with prior uns uccessful trial of buspirone - Vitamin D deficiency - History of ear pain, with normal ENT e valuation - History of attempting mental health th erapy 4-5 years ago without follow-up - Allergic reaction (skin rash) to iron supplementation Medications: - Indomethacin for headaches - Vitamin D3 50,000 units once a week - Ginkgo biloba - Fenugreek seeds - B complex supplements Diagnostic Results: - MRI: Normal. - Labs: Hemoglobin A1c is 5.2. - Cholesterol is normal. Social History: - Sleep: Reports snoring and not feeling rested upon waking. - Mental Health: Reports feeling depress ed and anxious. - Patient expresses a desire to return t o mental health therapy. - Denies thoughts of self-harm. - Safety: Reports being safe at home. [facility] Medical History (Updated 08/15/25 @ 09:47 by Vick Cadena MD) Vitamin D deficiency Anxiety and depression Anemia Upper respiratory disease Skin lesion Annual physical exam Severe headache No pertinent past medical history Surgical History H/O exploratory laparotomy Family History (Updated 08/15/25 @ 09:17 by Page Pagan MA) Mother No problems noted. Father No problems noted. Social History Housing: Apartment Alcohol intake: current Alcohol intake frequency: holidays/special occasions only Patient Tobacco Use Status: Never used Tobacco e-Cigarette/Vaping Use: Never Used service: No Current occupational status: employed Current occupation: [employer] Sexual orientation: Straight/Heterosexual Gender identity: Female Cognitive needs: No Hearing needs: No Vision needs: Yes (rx glasses) Female Reproductive History Menstrual Age of Menarche: 8 Questionnaire PHQ-9 Over the last 2 weeks, how often have you been bothered by any of the following problems? 1. Little interest or pleasure in doing things: not at all 2. Feeling down, depressed, or hopeless: nearly every day 3. Trouble falling or staying asleep, or sleeping too much: nearly every day (trouble staying asleep ) 4. Feeling tired or having little energy: not at all 5. Poor appetite or overeating: nearly every day (poor appetite) 6. Feeling bad about yourself - or that you are a failure or have let yourself or your family down: not at all 7. Trouble concentrating on things, such as reading the newspaper or watching television: not at all 8. Moving or speaking so slowly that other people could have noticed. Or the opposite - being so fidgety or restless that you have been moving around a lot more than usual: not at all 9. Thoughts that you would be better off or of hurting yourself in some way: not at all Total score: 9 Depression Screening Interpretation: Positive Depression Screening Done: Yes 36771 - PHQ-9 Billing: Yes Source: Developed by Drs. Anthony Baer, Comfort Downey, Gerry Parada and colleagues, with an educational yung from [employer]. Thrive Questionnaire Date Thrive assessed: 08/15/25 I am a: Patient What is your living situation today?: I have a steady place to live Within the past 12 months, did the food you bought not last and you didn't have the money to get more?: Never true Within the past 12 months, did you worry whether your food would run out before you got money to buy more?: Never true Do you have trouble paying for medicines?: No Do you have trouble getting transportation to medical appointments?: No Do you have trouble paying your heating and electricity bill?: No Do you have trouble taking care of your child, family member or friend?: No Do you have trouble with day-to-day activities such as bathing, preparing meals, shopping, managing finances, etc.?: No Are you currently unemployed and looking for a job?: No Are you interested in more education?: No THRIVE Score: 0 AUDIT C Alcohol Use Questionnaire (AUDIT-C) 1. How often do you have a drink containing alcohol?: Never 3. How often do you have six or more drinks on one occasion?: Never Total Score: 0 ONEYDA-7 AMB Questionnaire ONEYDA-7 Date ONEYDA - 7 assessed: 08/15/25 Feeling nervous, anxious, or on edge: 3 = Nearly every day Not being able to stop or control worryin = Nearly every day Worrying too much about different things: 3 = Nearly every day Trouble relaxin = Not at all Being so restless that it is hard to sit still: 0 = Not at all Becoming easily annoyed or irritable: 0 = Not at all Feeling afraid as if something awful might happen: 0 = Not at all Total ONEYDA-7 score (0-4 normal; 5-9 mild; 10-14 moderate; 15-21 severe): 9 Source: Developed by Drs. Anthony Baer, Comfort Downey, Gerry Parada and colleagues, with an educational yung from [employer]. ONEYDA-7 Assessment Billing ONEYDA-7 Assessment Tool: ONEYDA-7 Assessment 81654 Review of Systems Narrative - Neurological: Reports severe, recurrent headaches, recently described as dull and intermittent. - Musculoskeletal: Reports neck pain radiating to the shoulder. - Gastrointestinal: Reports heartburn and loss of appetite. - HEENT: Reports ear pain located in the back of the ear. - Reports snoring. - Constitutional: Denies feeling rested upon waking in the morning. - Psychiatric: Reports feeling depressed, sad, and anxious. - Dermatologic: Reports a skin lesion that has not changed in size. - Reports a history of developing small white skin breakouts with iron supplements. All systems reviewed & are unremarkable except as reviewed in HPI and above Physical exam (Primary Care) Vital Signs: Last Vital Signs Temp 97.9 F 08/15/25 08:31 Pulse 80 08/15/25 08:31 BP 111/65 08/15/25 08:31 Pulse Ox 99 08/15/25 08:31 Oxygen Delivery Method Room Air 08/15/25 08:31 BMI result Body Mass Index 30.6 Tobacco/Smoking Status: Tobacco use Status Tobacco use date assessed 08/15/25 08/15/25 08:32 Patient Tobacco Use Status Never used Tobacco 08/15/25 08:32 e-Cigarette/Vaping Use Never Used 08/15/25 08:32 PHQ-9: PHQ-9 Score PHQ-9: Total score 9 08/15/25 09:18 Depression Screening Interpretation: Positive Thrive Assessment: Date of Thrive Assessment Date Thrive assessed 08/15/25 08/15/25 08:32 Narrative General: +Alert and oriented, Well nourished, No acute distress. Eye: Pupils are equal, round and reactive to light, Intact accommodation, Extraocular movements are intact, Normal conjunctiva, Vision unchanged. HENT: Normocephalic, Atraumatic, Tympanic membranes are clear, Normal hearing, Oral mucosa is moist, No pharyngeal erythema, Ear canals patent. Respiratory: Lungs CTA bilaterally, No wheeze, Respirations are non-labored. Cardiovascular: Regular rate, Regular rhythm, S1 auscultated, S2 auscultated, No murmur, Good pulses equal in all extremities, Normal peripheral perfusion, No edema. Gastrointestinal: Soft, Non-tender, Non-distended, Normal bowel sounds, No organomegaly. Musculoskeletal: Normal range of motion, Normal strength, No tenderness, No swelling, No deformity, Normal gait. Integumentary: Warm, Dry, Odon, Intact. Neurologic: Alert, Oriented, Normal sensory, Normal motor function, No focal defects, Cranial Nerves II-XII are grossly intact, Normal deep tendon reflexes. Psychiatric: Cooperative, Appropriate mood & affect, Normal judgment, Reports feeling depressed and anxious, History of Buspirone use for anxiety. Coding Level of Care Code Est Pt Level 4 (04478) Complex EM visit Add On G2211 Diagnoses Severe headache R51.9 Anxiety and depression F41.9; F32.A Vitamin D deficiency E55.9 Skin lesion L98.9 Additional Codes PHQ-9 - 39242 - PHQ-9 Billing: Yes ([id number]) ONEYDA-7 Assessment Billing - ONEYDA-7 Assessment Tool: ONEYDA-7 Assessment 56356 ([id number]) Assessment & Plan Assessment & Plan (1) Severe headache: Comment: - The patient reports some improvement with indomethacin, though headaches persist. - A recent MRI was reassuringly normal. - Given her snoring and not feeling rested, sleep apnea is a possible contributing factor, although she is hesitant to undergo a sleep study at this time. - The patient will continue indomethacin, taking it with food. - She will follow up with her neurologist next month. - A referral to a new ENT in October will be considered to evaluate for nerve compression if symptoms do not improve. Code(s): R51.9 - Headache, unspecified Category: Medical (2) Anxiety and depression: Comment: - The patient has a long-standing history of anxiety and depression and desires to re-engage in therapy. - A previous trial of buspirone was not helpful. - Positive PHQ9 & ONEYDA - A referral to our psychiatry department will be placed. - In the interim, she will restart buspirone at 5 mg twice daily. - She was instructed to call the clinic in a month if she has not been seen by psychiatry to discuss the medication's effectiveness, with the option to increase the dose. Code(s): F41.9 - Anxiety disorder, unspecified; F32.A - Depression, unspecified Category: Medical (3) Vitamin D deficiency: Comment: - The patient will continue her prescribed regimen of vitamin D 50,000 units once weekly for a 12-week course. Code(s): E55.9 - Vitamin D deficiency, unspecified Category: Medical (4) Skin lesion: Comment: - The patient reports the lesion is stable. - She will continue to monitor it and has an appointment with dermatology next year. Code(s): L98.9 - Disorder of the skin and subcutaneous tissue, unspecified Category: Medical Plan: Health Maintenance: - Cervical cancer screening: Patient is up to date with Pap smear, next one due in 2026. - Healthy lifestyle: Advised to take indomethacin with food to prevent gastric irritation. - Advised to consume green leafy vegetables as they are rich in iron, although her iron levels are currently normal. - Sleep hygiene: Discussed the possibility of sleep apnea contributing to her symptoms and the option of a sleep study, which the patient declined at this time. - Follow-up: Scheduled for an annual physical exam in 6 months. Patient was informed and verbally consented to the use of an ambient scribe for clinic note documentation during this visit. Plan I discussed with the patient that her recent MRI was normal, which is reassuring and rules out a major underlying cause for her headaches. We reviewed her use of indomethacin, and I recommended she continue taking it with food to prevent s tomach irritation. I explained that blood work would be needed to monitor for side effects of indomethacin but deferred ordering it since her neurologist has already ordered labs for her upcoming visit. We discussed her history of anxiety and depression, and her desire to return to therapy. I placed a referral to our psychiatry department and started her on buspirone 5 mg twice a day as a bridge until her appointment, explaining that the dose could be adjusted. I also explained that sleep apnea could be a contributor to her headaches and fatigue due to her reported snoring and unrefreshing sleep, but she declined a sleep study at this time due to anxiety about the procedure. We agreed on a follow-up appointment in six months for her annual physical. Orders: Referrals Psychiatry Referral F32.A - Depression, unspecified, F41.9 - Anxiety disorder, unspecified Medications: New buspirone 5 mg PO BID 60 tabs 0RF 30 days Patient Instructions: - Continue taking your current supplements, including vitamin D 50,000 units once a week to complete your 12-week course. - Continue taking Indomethacin for your headaches, but always take it with food to avoid stomach upset. - Keep your follow-up appointment with the neurologist next month. - A referral has been sent for you to see a therapist for your anxiety and depression. - Start taking Buspirone 5 mg twice a day for anxiety. - This medication may take some time to work. - If you have not been scheduled to see the therapist within one month, please call our office to let us know how you are feeling on the new medication. - Keep an eye on your skin lesion. You have an appointment with the stove refinisher next year. - Please schedule a follow-up appointment at the [facility] for six months from now for your annual physical exam.
--- OUTSIDE RECORDS SUMMARY | 2025-08-15 09:38 | XMS_ITS | Encounter Summary ---
Author Organization [facility] Address [address] [place] [address] Phone Care Team Providers Care Freight Dispatcher Name Role Phone Emily Nath MD Primary Care Provider [phone] Encounter Details Date Type Department Care Team (Late st Contact Info) Description 03/25/2015 Documentation [facility] [place] [address] [place] [address] Family Medicine, Physician [address] [phone] Social History Tobacco Use Types Packs/Day Years [...] on filedocumented in this encounter Care Teams Freight Dispatcher Relationship Specialty Start Date End Date Emily Nath MD [address] [facility] [place] [address] PCP - General 05/21/17 01/12/23 documented as of this encounter
--- OUTSIDE RECORDS SUMMARY | 2025-08-15 09:39 | XMS_ITS | Data Portability ---
Author Organization [place] [facility], Allergy Address [address] [address] Care Team Providers Care Ambulance Driver Name Role Phone CORWIN MSOER Primary Care Provider Assessment Encounter Date Assessment [...] recorded. Referral neurologist referral 2024 025 [email or web address] [facility] Neurology Scheduling, [address] [place], [address], 15:42:38 Procedures None recorded. Surgeries None recorded. 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 Procedures Surgical History Date Name Laterality Status Provider Name and Address Organization Details Recorded Time 12/22/2024 Air & Speech Audio with Tymps - 06309, 09800 & 96446 completed IBAN GAVIRIA, [facility] [address] [facility],[place] [address], [place], [address], [facility] [place] 12/22/2024 15:58:52 Imaging Results None recorded. Procedure Notes None recorded. Medical Equipment None Reported. Medications Name Sig Start Date Stop Date Status Note LastModified by Organization Details LastModified Time cetirizine 10 mg tablet active Medication ID: [id number] Bran d Name: cetirizine Send Method: E-Prescribe d Subs Allowed: subs OK Medicati onGenericNa me: cetirizine Not Available Not Available Not Available Vitals Date Recorded Body weight Body mass index (BMI) Body height Provider Name and Address Organization Details Last Updated DateTime 12/22/2024 88029.78 g 29.3 kg/m2 157.48 cm Lidia Cornelius [facility] [place] 12/22/2024 15:40:29 Social History None recorded. Functional Status None recorded. Mental Status None recorded. Family History Nothing Reported. Medical History No medical history recorded. Gynecological HistoryNo gynecological history recorded. Obstetrics History GPAL:G 0 P 0 0 0 0 Past Encounters Encounter ID Performer Location Encounter Start Date Encounter Closed Date Diagnosis/Indication Diagnosis SNOMED-CT Code Diagnosis ICD10 Code Diagnosis IMO Codes Diagnosis Note [id number] JOB LOPEZ PA-C 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 Referred o talgia of left ear 1881599153 779757 H92.02 Conductive hearing loss, bilateral 817929429 H90.0 Health Concerns Section Related Observation LastModified by Organization Detai ls LastModified Time None Recorded Concern Status LastModified by Organization Details LastModified Time None Recorded Advance Directives Directive None Recorded Payers Insurance Date Sequence Insurance Name Policy Number Policy Moore Covered Member ID Moore Member ID Guarantor Name 12/22/2024 1 [facility] PLAN (MEDICAID HMO) [id number] Kelby Staples [id number] Kelby Staples Notes Date Note Type Note Provider Name and Address Organization Details Recorded Time 12/22/2024 text/html ROS as noted in the HPI 24 year old female presents for evaluation of occasional throbbing behind [...] CT temporal bone. RODRIGO FUNG MD [address] [address], [place], [address], [facility] 12/24/2024 08:10:46 OBGyn Episode No OBEpisode recorded.
--- OUTSIDE RECORDS SUMMARY | 2025-08-15 09:39 | XMS_ITS | Encounter Summary ---
Author Organization [facility] Address [address] [place] [address] Phone Care Team Providers Care Pouncer Name Role Phone Emily Nath MD Primary Care Provider Encounter Details Date Type Department Care Team (Late st Contact Info) Description 10/18/2014 Documentation [facility] [place] Family Medicine [address] [place] [address] Family Medicine, Physician [address] [place] [phone] Social History Tobacco Use Types Packs/Day Years [...] on filedocumented in this encounter Care Teams Pouncer Relationship Specialty Start Date End Date Emily Nath MD [address] [facility] [place] [address] PCP - General 05/21/17 01/12/23 documented as of this encounter
--- OUTSIDE RECORDS SUMMARY | 2025-08-15 09:39 | XMS_ITS | Encounter Summary ---
Author Organization [facility] Address [address] [place] [address] Phone Care Team Providers Care Sap Specialist Name Role Phone Emily Nath MD Primary Care Provider Encounter Details Date Type Department Care Team (Late st Contact Info) Description 02/12/2017 Documentation [facility] [place] Family Medicine [address] [place] [address] Family Medicine, Physician [address] [phone] Social History Tobacco Use Types Packs/Day Years [...] on filedocumented in this encounter Care Teams Sap Specialist Relationship Specialty Start Date End Date Emily Nath MD [address] [place] [address] [place] [address] PCP - General 05/21/17 01/12/23 documented as of this encounter
--- OUTSIDE RECORDS SUMMARY | 2025-08-15 09:39 | XMS_ITS | Clinical Summary ---
Author Organization [facility] Address [address] [place] [address] Phone Care Team Providers Care Cotton Breeder Name Role Phone Unavailable Primary Care Provider [...] [facility] she wants to [facility] providers there and plans to go back to see someone else 06/11/19 was seen by Delio RUSSELL at [facility]. Low dose US showed 3 punctate [...] complete this topic Procedures * Due to [place] [employer] law, this organization might not be sharing sensitive test results. Procedure Name Priority Date/Time Associated Diagnosis Comments CHLAMYDIA AND GONORRHEA, AMPLIFIED Routine 04/19/2019 3:20 PM EDT Screening examination for bacterial and spirochetal disease from Last 3 Months or Most Recently Relevant to Health Maintenance Results * Due to [place] [employer] law, this organization might not be sharing sensitive test results. * Chlamydia and Gonorrhoea, Amplified (04/19/2019 3:20 PM EDT) Chlamydia Trachomatis, DNA Probe NEGATIVE (NEG) [facility] Comment: No Chlamydia Trachomatis RNA detected in this patient's sample (REFERENCE RANGE/NORMAL VALUE: NOT DETECTED) Note: This test uses industrial therapist- mediated amplification method to detect rRNA from C. Trachomatis URINE GC AMP PROBE NEGATIVE (NEG) [facility] Comment: No Neisseria Gonorrhoeae RNA detected in this patient's sample (REFERENCE RANGE/NORMAL VALUE: NOT DETECTED) NOTE: This test uses industrial therapist-mediated amplification method to detect rRNA from N.Gonorrhoeae. [...] without risk of sexual abuse. Consult the [facility] if needed. Contact phone number . Therapeutic failure or success cannot be determined with the Aptima Combo2 assay since nucleic acid may persist following appropriate antimicrobial therapy. The Centers for Disease Control and Prevention (CDC) recommends confirmatory retesting using culture or a different nucleic acid amplification test when positive results occur, if indicated. Testing performed or reported by [facility], a Service of [facility], [address] [place] [address] Urine 04/19/2019 3:20 PM EDT 04/19/2019 10:46 PM EDT us Emily Nath MD LAB MICROBIOLOGY - GENERAL ORDERABLES Final Result [facility] from Last 3 Months or Most Recently Relevant to Health Maintenance Insurance [facility] NON [facility]CC
--- OUTSIDE RECORDS SUMMARY | 2025-08-15 09:39 | XMS_ITS | Encounter Summary ---
Author Organization [facility] Address [address] [place] [phone] Phone Care Team Providers Care Civil Lawyer Name Role Phone Emily Nath MD Primary Care Provider Encounter Details Date Type Department Care Team (Late st Contact Info) Description 07/20/2012 Documentation [facility] [place] Family Medicine [address] [place] [address] Family Medicine, Physician [address] [place], [place] [phone] Social History Tobacco Use Types Packs/Day Years [...] on filedocumented in this encounter Care Teams Civil Lawyer Relationship Specialty Start Date End Date Emily Nath MD [address] [facility] [place] [address] PCP - General 05/21/17 01/12/23 documented as of this encounter
--- OUTSIDE RECORDS SUMMARY | 2025-08-15 09:39 | XMS_ITS | Encounter Summary ---
Author Organization [facility] Address [address] [place] [address] Phone Care Team Providers Care Die Attaching Machine Tender Name Role Phone Emily Nath MD Primary Care Provider [phone] Encounter Details Date Type Department Care Team (Late st Contact Info) Description 07/19/2012 Documentation [facility] [place] Family Medicine [address] [place] [address] Family Medicine, Physician [address] [place] [phone] Social History Tobacco Use Types Packs/Day Years [...] on filedocumented in this encounter Care Teams Die Attaching Machine Tender Relationship Specialty Start Date End Date Emily Nath MD 150 [facility] [place] [address] PCP - General 05/21/17 01/12/23 documented as of this encounter
--- OUTSIDE RECORDS SUMMARY | 2025-08-15 09:39 | XMS_ITS | Encounter Summary ---
Author Organization [facility] Address [address] [place] [phone] Phone Care Team Providers Care Driver Messenger Name Role Phone Emily Nath MD Primary Care Provider Encounter Details Date Type Department Care Team (Late st Contact Info) Description 03/13/2015 Documentation [facility] [place] [address] [place] [address] Family Medicine, Physician [address] [place], [place] [phone] Social History Tobacco Use Types Packs/Day Years [...] on filedocumented in this encounter Care Teams Driver Messenger Relationship Specialty Start Date End Date Emily Nath MD 150 [facility] [place] [address] PCP - General 05/21/17 01/12/23 documented as of this encounter
--- OUTSIDE RECORDS SUMMARY | 2025-08-15 09:39 | XMS_ITS | Encounter Summary ---
Author Organization [facility] Address [address] [place] [phone] Phone Care Team Providers Care Seo Team Lead Name Role Phone Emily Nath MD Primary Care Provider Encounter Details Date Type Department Care Team (Late st Contact Info) Description 07/20/2012 Documentation [facility] [place] Family Medicine [address] [place] [address] Family Medicine, Physician [address], [place] [phone] Social History Tobacco Use Types Packs/Day Years [...] on filedocumented in this encounter Care Teams Seo Team Lead Relationship Specialty Start Date End Date Emily Nath MD 150 [facility] [place] [address] PCP - General 05/21/17 01/12/23 documented as of this encounter
--- OUTSIDE RECORDS SUMMARY | 2025-08-15 09:39 | XMS_ITS | Encounter Summary ---
Author Organization [facility] Address [address] [place] [phone] Phone Care Team Providers Care Top Waddy Name Role Phone Emily Nath MD Primary Care Provider Encounter Details Date Type Department Care Team (Late st Contact Info) Description 01/12/2017 Documentation [facility] [place] [address] [place] [address] Family Medicine, Physician [address] [place] [phone] Social History Tobacco Use Types Packs/Day Years [...] on filedocumented in this encounter Care Teams Top Waddy Relationship Specialty Start Date End Date Emiyl Nath MD [address] [place] [address] [place] [address] PCP - General 05/21/17 01/12/23 documented as of this encounter
--- OUTSIDE RECORDS SUMMARY | 2025-08-15 09:39 | XMS_ITS | Encounter Summary ---
Author Organization [facility] Address [address] [place] [phone] Phone Care Team Providers Care Palletizer Operator Name Role Phone Emily Nath MD Primary Care Provider Encounter Details Date Type Department Care Team ([facility] st Contact Info) Description 05/27/2017 Conversion Encounter [facility] [place] [address] [place] [address] Social History Tobacco Use Types Packs/Day Years [...] on filedocumented in this encounter Care Teams Palletizer Operator Relationship Specialty Start Date End Date Emily Nath MD [address] [place] [address] PCP - General 05/21/17 01/12/23 documented as of this encounter
== END 2025-08-15 09:37 | disposition home or self-care (01) ==
LOC: HO.HMCHD 09:03
PROVIDERS: PCP Student in an Organized Health Care Education/Training Program; Visit Provider Student in an Organized Health Care Education/Training Program
DX: R51.9 Headache, unspecified (principal); F41.9 Anxiety disorder, unspecified; F32.A Depression, unspecified; E55.9 Vitamin D deficiency, unspecified; L98.9 Disorder of the skin and subcutaneous tissue, unspecified

== ENCOUNTER → 2025-08-15 09:02 | Outpatient (BNVA) | payer OTHER, SELFPAY | PROVIDERS: PCP Student in an Organized Health Care Education/Training Program; Visit Provider Student in an Organized Health Care Education/Training Program | DX: R51.9 Headache, unspecified (principal); F41.9 Anxiety disorder, unspecified; F32.A Depression, unspecified; E55.9 Vitamin D deficiency, unspecified; L98.9 Disorder of the skin and subcutaneous tissue, unspecified; Z13.31 Encounter for screening for depression; Z13.39 Encounter for screening examination for other mental health and behavioral disorders | CPT/HCPCS: 96127; 99212 ==

== ENCOUNTER 2025-09-20 09:08 | Outpatient (REF) | payer OTHER, SELFPAY ==
[2025-09-20 09:23] LABS: MANUAL DIFF FLAG NO
[2025-09-20 09:29] LABS: Hematocrit 46.9 % (37.0-47.0); Hemoglobin 15.9 g/dl (12.0-16.0); Imm Gran Abs Auto 0.02 X10*3/uL (0.00-0.03); Imm Gran Pct Auto 0.3 % (0.0-0.4); Lymphocytes Absolute Auto 2.3 X10*3/uL (1.2-4.9); Mean Corpuscular HGB Conc 33.9 g/dl (31.0-35.0); Mean Corpuscular Hemoglobin 29.4 pg (27.0-33.0); Mean Corpuscular Volume 86.9 fL (80.0-98.0); NRBC Abs Auto 0.000 X10*3/uL (0.0-0.012); NRBC Pct Auto 0.0 /100WBC (0.0-0.2); Platelet Count 374 X10*3/uL (160-400); Red Blood Count 5.40 X10*6/uL (4.20-5.50); White Blood Count 7.5 X10*3/uL (4.8-10.8)
[2025-09-20 10:11] LABS: Alanine Aminotransferase 19 U/L (0-31); Albumin Level 5.0 g/dL (3.5-5.0); Alkaline Phosphatase 108 U/L (39-117); Anion Gap 11 (12-20); Aspartate Amino Transferase 24 U/L (5-31); Blood Urea Nitrogen 10 mg/dL (9-16); Calcium 9.8 mg/dL (8.4-10.2); Carbon Dioxide 28 mmol/L (22-29); Chloride 107 mmol/L (96-108); Estimated Glomerular Filt Rate > 60; Potassium 3.8 mmol/L (3.3-5.1); Sodium 142 mmol/L (135-145); Total Protein 8.4 g/dL (6.5-8.0)
== END 2025-09-20 09:09 ==
LOC: HO.LAB 09:08
PROVIDERS: PCP Student in an Organized Health Care Education/Training Program; Visit Provider Nurse Practitioner Family
DX: Z01.84 Encounter for antibody response examination (principal); R76.89 Other specified abnormal immunological findings in serum; E55.9 Vitamin D deficiency, unspecified; J39.9 Disease of upper respiratory tract, unspecified; L98.9 Disorder of the skin and subcutaneous tissue, unspecified; R51.9 Headache, unspecified; D64.9 Anemia, unspecified
CPT/HCPCS: 36415; 80048; 80053; 82306; 85025; 85652; 86038; 86140; 86160; 86225